=== PATIENT | female | born 1930 | race Caucasian/White ===

== ENCOUNTER 2020-06-06 16:59 | Inpatient (IN) | payer OTHER ==
[2020-06-06] MEDS ORDERED: HEPARIN NA (PORCINE) 5,000 UNITS/ML 1ML VIAL ONE (17:36)
[2020-06-06] MEDS ORDERED: PROPOFOL 20 ML ONE ×2 (17:57)
[2020-06-06] MEDS ORDERED: MIDAZOLAM HCL 2 MG/2 ML SINGLE DOSE VIAL ONE (17:57)
[2020-06-06] MEDS ORDERED: POVIDONE-IODINE OINTMENT 10% - 28.4 GM TUBE ONE (18:05)
--- NOTE | 2020-06-06 18:21 | PDOC ---
History of Present Illness - General Chief Complaint: Laceration Stated Complaint: BLEEDING Time Seen by Provider: 06/06/20 18:10 - History of Present Illness Initial Comments: 06/06/20 18:17 89 F with h/o HTN, gout, CKD, CAD, dementia, presenting to ED with ischemic R foot. Pt was sent in from Dr. Em's office. Pt is to have R fem-pop bypass today. Pt reports pain in her RLE. Osbaldo F/C. History limited 2/2 dementia. Past History - Medical History Allergies/Adverse Reactions: Allergies Allergy/AdvReac Type Severity Reaction Status Date / Time No Known Allergies Allergy Verified 06/06/20 18:05 COPD: No CHF: Yes GI Disorders: Yes (gerd) HTN: Yes Hypercholesterolemia: Yes Psychiatric Problems: Yes (depression) Other medical history: DVT,chronic kidney - Reproductive History Is Patient Now?: No - Psycho-Social/Smoking History Smoking History: Never smoked Have you smoked in the past 12 months: No Information on smoking cessation initiated: No - Substance Abuse Hx (Audit-C & DAST Scrn) How often the patient has a drink containing alcohol: Never Score: In Men: 4 or > Positive; In Women: 3 or > Positive: 0 Screen Result (Pos requires Nsg. Audit-10AR): Negative In the last yr the pt used illegal drug/Rx for NonMed reason: No Score: Yes response is considered Positive: 0 Screen Result (Positive result requires Nsg. DAST-10): Negative Review of Systems - Review of Systems Able to Perform ROS?: No *Physical Exam - Vital Signs Last Vital Signs Temp Pulse Resp BP Pulse Ox 97.5 F L 52 L 17 153/57 L 96 06/06/20 17:00 06/06/20 17:00 06/06/20 17:00 06/06/20 17:00 06/06/20 17:00 - Physical Exam 06/06/20 18:20 "GENERAL: Awake, alert, in no acute distress. HEAD: No signs of trauma EYES: PERRLA, EOMI, sclera anicteric, conjunctiva clear ENT: Auricles normal inspection, hearing grossly normal, nares patent, oropharynx clear without exudates. Moist mucosa NECK: Nontender, no stepoffs, Normal ROM, supple, no lymphadenopathy, JVD, or masses LUNGS: Breath sounds equal, clear to auscultation bilaterally. No wheezes, and no crackles HEART: Regular rate and rhythm, normal S1 and S2, no murmurs, rubs or gallops ABDOMEN: Soft, nontender, normoactive bowel sounds. No guarding, no rebound. No masses EXTREMITIES: + R foot diminished pulses NEUROLOGICAL: Cranial nerves II through XII intact. SKIN: Warm, Dry, normal turgor, no rashes or lesions noted. Medical Decision Making - Medical Decision Making 06/06/20 18:20 89 F with ischemic R foot, sent in for fem-pop bypass with Dr. Em. - Labs, T&S, coags - Dr. Em at bedside to take pt to OR Discharge - Discharge Information Problems reviewed: Yes Clinical Impression/Diagnosis: Ischemic foot - Admission Yes - Follow up/Referral - Patient Discharge Instructions - Post Discharge Activity
[2020-06-06 18:43] LABS: BASO % 0.7 % (0-2.0); EOS % 2.1 % (0-4.5); HEMATOCRIT 30.8 % (32.4-45.2); HEMOGLOBIN 9.8 GM/dL (10.7-15.3); LYMPH % 9.8 % (8-40); MCH 27.2 pg (25.7-33.7); MCHC 31.9 g/dl (32.0-36.0); MEAN CELL VOLUME 85.2 fl (80-96); MEAN PLT VOLUME 8.4 fl (7.5-11.1); MONO % 3.7 % (3.8-10.2); NEUT % 83.7 % (42.8-82.8); PLATELET COUNT 292 K/MM3 (134-434); RBC 3.61 M/mm3 (3.60-5.2); RDW 16.8 % (11.6-15.6); WHITE BLOOD COUNT 11.1 K/mm3 (4.0-10.0)
[2020-06-06] MEDS ORDERED: ROCURONIUM BROMIDE 50 MG/5 ML SYRINGE ONE (19:04)
[2020-06-06 19:12] LABS: ALBUMIN 2.8 g/dl (3.4-5.0); BILIRUBIN,TOTAL 0.3 mg/dL (0.2-1); BLOOD UREA NITROGEN 30.4 mg/dL (7-18); CALCIUM 8.5 mg/dL (8.5-10.1); CREATININE 1.6 mg/dL (0.55-1.3); POTASSIUM 4.3 mmol/L (3.5-5.1); TOT PROT 6.2 g/dl (6.4-8.2)
[2020-06-06] MEDS ORDERED: ceFAZolin SODIUM 1 GM VIAL IVPB ONE (19:20)
[2020-06-06] MEDS ORDERED: NEOSTIGMINE METHYLSULFATE 0.5 MG/ML - 10 ML MDV ONE (21:06)
[2020-06-06] MEDS ORDERED: GLYCOPYRROLATE 0.2 MG/1 ML VIAL ONE (21:06)
[2020-06-06] MEDS ORDERED: BACITRACIN 15 GM TUBE TOPICAL OINTMENT ONE (21:13)
[2020-06-06] MEDS ORDERED: POVIDONE-IODINE OINTMENT 10% - 28.4 GM TUBE TP ONE (21:23)
[2020-06-06] MEDS ORDERED: CHLORHEXIDINE GLUCONATE 4% CLEANSER FOR DECOLONIZATION TP SCH (22:00)
[2020-06-06] MEDS ORDERED: ACETAMINOPHEN 500 MG TABLET (FP) PO PRN ×2 (22:06→22:14)
[2020-06-06] MEDS ORDERED: SENNOSIDES/DOCUSATE COMBO (SENNA PLUS) TABLET (UD) PO PRN (22:06)
[2020-06-06] MEDS: LABETALOL HCL 5 MG/1 ML (100MG/20 ML VIAL) IVPUSH ONE ×2 (22:15→23:49)
--- NOTE | 2020-06-06 22:25 | OP ---
Operative Note - Note: Operative Date: 06/06/20 Pre-Operative Diagnosis: Right lower extremity ischemia Operation: s/p RIght lower extremity femoral popliteal bypass with PTFE graft Surgeon: Arlin Em Preassembler And Inspector: Salome Collado Anesthesia: General Estimated Blood Loss (mls): 150 Drains, Volume Out (mls): 200 (brady) Fluid Volume Replaced (mls): 1,000 Operative Report Dictated: Yes
--- NOTE | 2020-06-06 22:27 | SURG ---
Surgery Office Support Associate Note Office Support Associate: Salome Collado PA-C Date of Service: 06/06/20 Diagnosis: Right lower extremity ischemia Procedure: s/p RIght lower extremity femoral popliteal bypass with PTFE graft I was present for the entirety of the operative procedure. For further detail, please refer to operative report.
[2020-06-06] MEDS ORDERED: LABETALOL HCL 5 MG/1 ML (100MG/20 ML VIAL) IVPUSH PRN (22:37)
[2020-06-06] MEDS: MORPHINE SULFATE 2 MG/ML VIAL IVPUSH PRN (23:47)
[2020-06-06] MEDS: SODIUM CHLORIDE 1,000 ML IV SCH (23:49)
[2020-06-07] MEDS ORDERED: LABETALOL HCL 5 MG/1 ML (100MG/20 ML VIAL) IVPUSH PRN ×2 (00:36→17:47)
[2020-06-07] MEDS: MUPIROCIN 2% TOPICAL OINTMENT FOR DECOLONIZATION NS SCH ×2 (00:44→13:22)
--- NOTE | 2020-06-07 00:48 | CONSULT ---
Consultation: REQUESTING PROVIDER: CONSULT REQUEST: We have been asked to medically evaluate this patient for (specify). HISTORY OF PRESENT ILLNESS: 89 yo female DNI with pmh dementia, htn, CAD, DVTs, CKD, GERD, constipation, cardiac pacemaker (on coumadin), hld, PVD, Heart failure presents to ICU for post op day 0 for Right popliteal-femoral bypass. Pt poor historian due to baseline dementia most of history was presented by anesthesiologist and note. Pt had doppler study in vascular surgeon 's office showed ischemic right foot. Pt presented to hospital for urgent fem pop bypass. Pt received bypass and now just complaining of ongoing right leg pain. Pt has some mild chronic chest pain but denies sob, fevers, chills, numbness. Pt has not made bowel movement or past gas post surgery. Pt had very high bp post surgery and was given 25 labetalol will monitor PMH: Dementia, htn, CAD, DVTs, CKD, Gerd, Constipation, HLD, PVD, heart failure Meds: santyl 250 uints/ gram, calcium alginate, furosemide 40mg, coumadin 2gm (started 05/13 for DVT held today), acetaminophen 500 mg, polyethyelene glycol 17 g, senna 8.6 mg, Dakin's solution, isosorbide mononitrate ER 30 mg tablet, rosuvastatin 10mg, uloric 40 mg PSH: cataract surgery PCP: Dr. Hirsch [phone] Vascular: Dr. Em REVIEW OF SYSTEMS: Dementia unreliable PHYSICAL EXAMINATION Vital Signs - 24 hr 06/06/20 06/06/20 06/06/20 17:00 21:31 21:45 Temperature 97.5 F L 97.2 F L Pulse Rate 52 L 55 L 57 L Respiratory 17 17 18 Rate Blood Pressure 153/57 L 198/93 H O2 Sat by Pulse 100 93 L 100 Oximetry (%) 06/06/20 06/06/20 06/06/20 22:00 22:15 22:30 Temperature Pulse Rate 56 L 55 L 55 L Respiratory 18 16 16 Rate Blood Pressure 190/60 H 194/75 H 194/72 H O2 Sat by Pulse 97 97 97 Oximetry (%) 06/06/20 06/06/20 06/06/20 22:45 23:00 23:57 Temperature 97.5 F L 97.5 F L Pulse Rate 52 L 55 L 50 L Respiratory 14 14 14 Rate Blood Pressure 196/66 H 171/35 H 112/77 O2 Sat by Pulse 96 100 100 Oximetry (%) GENERAL: Awake, alert, and oriented to person. HEAD: Normal with no signs of trauma. EYES: Pupils equal, round and reactive to light, EARS, NOSE, THROAT: Ears normal, nares patent, oropharynx clear without exudates. NECK: Normal range of motion, supple without lymphadenopathy, JVD, or masses. LUNGS: Breath sounds equal, clear to auscultation bilaterally. HEART: Regular rate and rhythm, normal S1 and S2 without murmur, rub or gallop. ABDOMEN: Soft, nontender, not distended, normoactive bowel sounds, no guarding, no rebound, no masses. UPPER EXTREMITIES: 2+ pulses, warm, well-perfused. No cyanosis. No clubbing. Cap refill <2 seconds. No peripheral edema. LOWER EXTREMITIES: bilateral lower ext edema. 2+ pulses on left pedis dorsalis. Right leg kerlex showing no blood from surgery. Pt has good flow to dorsalis pedis artery via doppler NEUROLOGICAL: sensation equal on bilateral lower ext. PSYCHIATRIC: Cooperative. Good eye contact. Appropriate mood and affect. SKIN: Warm, dry, normal turgor, no rashes or lesions noted. Laboratory Results - last 24 hr 06/06/20 06/06/20 06/06/20 18:24 18:24 18:24 WBC 11.1 H RBC 3.61 Hgb 9.8 L Hct 30.8 L MCV 85.2 MCH 27.2 MCHC 31.9 L RDW 16.8 H Plt Count 292 MPV 8.4 Absolute Neuts (auto) 9.3 H Neutrophils % 83.7 H Lymphocytes % 9.8 Monocytes % 3.7 L Eosinophils % 2.1 Basophils % 0.7 Nucleated RBC % 0 Sodium 142 Potassium 4.3 Chloride 110 H Carbon Dioxide 23 Anion Gap 9 BUN 30.4 H Creatinine 1.6 H Est GFR (CKD-EPI)AfAm 32.77 Est GFR (CKD-EPI)NonAf 28.27 Random Glucose 147 H Calcium 8.5 Total Bilirubin 0.3 AST 93 H ALT 28 Alkaline Phosphatase 149 H Total Protein 6.2 L Albumin 2.8 L Blood Type B NEGATIVE Antibody Screen Negative Crossmatch See Detail 06/06/20 06/06/20 19:50 19:50 WBC RBC Hgb Hct MCV MCH MCHC RDW Plt Count MPV Absolute Neuts (auto) Neutrophils % Lymphocytes % Monocytes % Eosinophils % Basophils % Nucleated RBC % Sodium Potassium Chloride Carbon Dioxide Anion Gap BUN Creatinine Est GFR (CKD-EPI)AfAm Est GFR (CKD-EPI)NonAf Random Glucose Calcium Total Bilirubin AST ALT Alkaline Phosphatase Total Protein Albumin Blood Type Cancelled B NEGATIVE Antibody Screen Cancelled Crossmatch Active Medications Generic Name Dose Route Start Last Admin Trade Name Freq PRN Reason Stop Dose Admin Acetaminophen 1,000 mg 06/06/20 22:14 Tylenol - PO Q8H PRN PAIN LEVEL 1-5 Carvedilol 25 mg 06/07/20 10:00 Coreg - PO BID [facility] Chlorhexidine Gluconate 1 applic 06/06/20 22:00 Hibiclens For Decolonization - TP HS MALINA Febuxostat 40 mg 06/07/20 10:00 Uloric - PO DAILY MALINA Furosemide 40 mg 06/07/20 10:00 Lasix - PO DAILY [facility] Sodium Chloride 1,000 mls @ 83 mls/hr 06/06/20 21:45 06/06/20 23:49 Normal Saline - IV 83 mls/hr ASDIR MALINA Administration Cefazolin Sodium 1 gm/ 50 mls @ 100 mls/hr 06/07/20 03:00 Dextrose IVPB 06/08/20 02:59 Q8H-IV [facility] Isosorbide Mononitrate 30 mg 06/07/20 10:00 Imdur - PO DAILY [facility] Labetalol HCl 10 mg 06/07/20 00:36 Normodyne Injection - IVPUSH Q15M PRN HYPERTENSION Mirtazapine 7.5 mg 06/07/20 22:00 Remeron - PO HS [facility] Morphine Sulfate 2 mg 06/06/20 22:09 06/06/20 23:47 Morphine Sulfate IVPUSH 2 mg Q4H PRN Administration PAIN LEVEL 1-5 Mupirocin 1 applic 06/06/20 22:00 Bactroban Ointment (For Decolonization) - NS 06/11/20 21:59 BID [facility] Polyethylene Glycol 17 gm 06/07/20 10:00 Miralax (For Daily Use) - PO DAILY [facility] Rosuvastatin Calcium 10 mg 06/07/20 22:00 Crestor - PO HS MALINA Senna/Docusate Sodium 2 tablet 06/06/20 22:06 Pericolace - PO DAILY PRN CONSTIPATION ASSESSMENT/PLAN: Dispo: We will continue to follow the patient. Thank you for this consultative opportunity. Neuro - Dementia - Will cont to monitor neuro intact of feet. Cardiac - Pt BP was high in PACU was given 20 Labetalol - pressure now MAP 50 250cc bolus given still <65 will start vasopressin if need be -PMH htn- will hold bp meds for now - HLD- will give atorvastatin - Anticoagulation- restart warfarin starting tomorrow - CHF- restart home meds tomorrow Resp - continue incentive spirometry every 15 minutes while awake - CKD - Will monitor Is and Os - will monitor electrolytes Ext - Pt received femoral popliteal bypass of right leg - will cont monitor neurovasculature intact ID - pt on post op abx cefazolin FEN - will monitor electrolytes Prophylaxis - DVT- will restart warfarin tomorrow under surgery consult Visit type - Medication Review Med list reviewed for High Risk Meds patients 65 and older: Yes - Emergency Visit Emergency Visit: Yes ED Registration Date: 06/06/20 Care time: The patient presented to the Emergency Department on the above date and was hospitalized for further evaluation of their emergent condition. - New Patient This patient is new to me today: Yes Date on this admission: 06/06/20 - Critical Care Critical Care patient: Yes Total Critical Care Time (in minutes): 36 Critical Care Statement: The care of this patient involved high complexity decision making to prevent further life threatening deterioration of the patient's condition and/or to evaluate & treat vital organ system(s) failure or risk of failure. ATTENDING PHYSICIAN STATEMENT I saw and evaluated the patient. I reviewed the resident's note and discussed the case with the resident. I agree with the resident's findings and plan as documented. SUBJECTIVE: OBJECTIVE: ASSESSMENT AND PLAN:
[2020-06-07] MEDS ORDERED: DEXTROSE 5%-WATER - 50 ML IVPB ONE ×3 (01:45→16:31)
[2020-06-07] MEDS ORDERED: ceFAZolin SODIUM 1 GM VIAL ONE ×3 (01:45→16:31)
[2020-06-07] MEDS: CEFAZOLIN 1 GM in DEXTROSE 5%-WATER - 50 ML IVPB SCH ×4 (02:02→21:12)
[2020-06-07] MEDS ORDERED: VASOPRESSIN 40 UNITS in SODIUM CHLORIDE 98 ML IVPB SCH (04:45)
[2020-06-07 07:05] LABS: BASO % 0.7 % (0-2.0); EOS % 0.5 % (0-4.5); HEMATOCRIT 25.6 % (32.4-45.2); HEMOGLOBIN 8.3 GM/dL (10.7-15.3); LYMPH % 4.7 % (8-40); MCH 27.9 pg (25.7-33.7); MCHC 32.5 g/dl (32.0-36.0); MEAN CELL VOLUME 85.7 fl (80-96); MEAN PLT VOLUME 8.8 fl (7.5-11.1); MONO % 5.9 % (3.8-10.2); NEUT % 88.2 % (42.8-82.8); PLATELET COUNT 167 K/MM3 (134-434); RBC 2.98 M/mm3 (3.60-5.2); RDW 17.3 % (11.6-15.6); WHITE BLOOD COUNT 8.9 K/mm3 (4.0-10.0)
[2020-06-07 07:18] LABS: INR 2.8 (0.83-1.09); PROTHROMBIN TIME (PATIENT) 33.4 SEC (9.7-13.0)
[2020-06-07 07:21] LABS: ACTIVATED PTT 24.2 SECONDS (25.2-36.5)
[2020-06-07 07:43] LABS: ALBUMIN 2.3 g/dl (3.4-5.0); BILIRUBIN,TOTAL 0.2 mg/dL (0.2-1); BLOOD UREA NITROGEN 31.1 mg/dL (7-18); CALCIUM 8.2 mg/dL (8.5-10.1); CREATININE 1.6 mg/dL (0.55-1.3); MAGNESIUM 1.7 mg/dL (1.8-2.4); PHOSPHOROUS 4.4 mg/dL (2.5-4.9); POTASSIUM 4.4 mmol/L (3.5-5.1); TOT PROT 5.1 g/dl (6.4-8.2)
[2020-06-07] MEDS: SODIUM CHLORIDE 1,000 ML IV SCH (09:31)
[2020-06-07] MEDS ORDERED: FEBUXOSTAT 40 MG TAB PO SCH (10:00)
[2020-06-07] MEDS ORDERED: CARVEDILOL 25 MG TABLET (FP) PO SCH (10:00)
[2020-06-07] MEDS ORDERED: ISOSORBIDE MONONITRATE 30 MG TAB.SR.24H (FP) PO SCH (10:00)
[2020-06-07] MEDS ORDERED: FUROSEMIDE 40 MG TABLET (FP) PO SCH (10:00)
[2020-06-07] MEDS ORDERED: POLYETHYLENE GLYCOL 3350 119 GM BTL PO SCH (10:00)
--- NOTE | 2020-06-07 10:13 | PN ---
Teaching Attending Note Name of Resident: Genesis Zhang ATTENDING PHYSICIAN STATEMENT I saw and evaluated the patient. I reviewed the resident's note and discussed the case with the resident. I agree with the resident's findings and plan as documented. SUBJECTIVE: Patient seen and examined in the ICU. 89 F, dementia, HTN, CAD, DVTs, CKD, GERD, constipation, cardiac pacemaker (on coumadin), HPL, PVD, and CHF. Admitted to ICU S/P Right popliteal-femoral bypass. Initially reported to have hypertension and then developed transient hypotension that responded to IVF and did not require pressors. Patient is awake and alert but mildly confused. Denies CP or SOB. Intake & Output 06/04/20 06/05/20 06/06/20 06/07/20 23:59 23:59 23:59 23:59 Intake Total 1150 997 Output Total 650 250 Balance 500 747 Weight 174 lb 174 lb 9.6 oz Last Vital Signs Temp Pulse Resp BP Pulse Ox 97.9 F 64 18 110/50 L 100 06/07/20 06:00 06/07/20 08:00 06/07/20 08:00 06/07/20 08:00 06/07/20 09:00 Active Medications Acetaminophen (Tylenol -) 1,000 mg PO Q8H PRN PRN Reason: PAIN LEVEL 1-5 Carvedilol (Coreg -) 25 mg PO BID [facility] Chlorhexidine Gluconate (Hibiclens For Decolonization -) 1 applic TP HS MALINA Last Admin: 06/07/20 00:44 Dose: Not Given Documented by: Febuxostat (Uloric -) 40 mg PO DAILY [facility] Furosemide (Lasix -) 40 mg PO DAILY [facility] Sodium Chloride (Normal Saline -) 1,000 mls @ 83 mls/hr IV ASDIR MALINA Last Admin: 06/07/20 09:31 Dose: 83 mls/hr Documented by: Cefazolin Sodium 1 gm/ (Dextrose) 50 mls @ 100 mls/hr IVPB Q8H-IV [facility] Stop: 06/08/20 02:59 Last Admin: 06/07/20 09:31 Dose: 100 mls/hr Documented by: Vasopressin 40 units/ Sodium (Chloride) 100 mls @ 5 mls/hr IVPB ASDIR MALINA; Protocol Last Admin: 06/07/20 06:52 Dose: Not Given Documented by: Isosorbide Mononitrate (Imdur -) 30 mg PO DAILY [facility] Labetalol HCl (Normodyne Injection -) 10 mg IVPUSH Q15M PRN PRN Reason: HYPERTENSION Mirtazapine (Remeron -) 7.5 mg PO HS [facility] Morphine Sulfate (Morphine Sulfate) 2 mg IVPUSH Q4H PRN PRN Reason: PAIN LEVEL 1-5 Last Admin: 06/06/20 23:47 Dose: 2 mg Documented by: Mupirocin (Bactroban Ointment (For Decolonization) -) 1 applic NS BID [facility] Stop: 06/11/20 21:59 Last Admin: 06/07/20 00:44 Dose: Not Given Documented by: Polyethylene Glycol (Miralax (For Daily Use) -) 17 gm PO DAILY [facility] Rosuvastatin Calcium (Crestor -) 10 mg PO HS [facility] Senna/Docusate Sodium (Pericolace -) 2 tablet PO DAILY PRN PRN Reason: CONSTIPATION GENERAL: Awake and responsive, NAD HEAD: Normal with no signs of trauma. EYES: (-) Pallor EARS, NOSE, THROAT: Ears normal, nares patent, oropharynx clear without exudates. NECK: Normal range of motion, supple without lymphadenopathy, JVD, or masses. LUNGS: Breath sounds equal, clear to auscultation bilaterally. HEART: Regular rate and rhythm, normal S1 and S2 without murmur, rub or gallop. ABDOMEN: Soft, nontender, not distended, normoactive bowel sounds, no guarding, no rebound, no masses. UPPER EXTREMITIES: 2+ pulses, warm, well-perfused. No cyanosis. No clubbing. Cap refill <2 seconds. No peripheral edema. LOWER EXTREMITIES: bilateral lower ext edema. 2+ pulses on left pedis dorsalis. Right leg kerlex showing no blood from surgery. Pt has good flow to dorsalis pedis artery via doppler NEUROLOGICAL: Non-focal PSYCHIATRIC: Cooperative. SKIN: Warm, dry, normal turgor, no rashes or lesions noted. Laboratory Results - last 24 hr 06/06/20 06/06/20 06/06/20 18:24 18:24 18:24 WBC 11.1 H RBC 3.61 Hgb 9.8 L Hct 30.8 L MCV 85.2 MCH 27.2 MCHC 31.9 L RDW 16.8 H Plt Count 292 MPV 8.4 Absolute Neuts (auto) 9.3 H Neutrophils % 83.7 H Lymphocytes % 9.8 Monocytes % 3.7 L Eosinophils % 2.1 Basophils % 0.7 Nucleated RBC % 0 Sodium 142 Potassium 4.3 Chloride 110 H Carbon Dioxide 23 Anion Gap 9 BUN 30.4 H Creatinine 1.6 H Est GFR (CKD-EPI)AfAm 32.77 Est GFR (CKD-EPI)NonAf 28.27 Random Glucose 147 H Calcium 8.5 Total Bilirubin 0.3 AST 93 H ALT 28 Alkaline Phosphatase 149 H Total Protein 6.2 L Albumin 2.8 L Blood Type B NEGATIVE Antibody Screen Negative Crossmatch See Detail 06/06/20 06/06/20 19:50 19:50 WBC RBC Hgb Hct MCV MCH MCHC RDW Plt Count MPV Absolute Neuts (auto) Neutrophils % Lymphocytes % Monocytes % Eosinophils % Basophils % Nucleated RBC % Sodium Potassium Chloride Carbon Dioxide Anion Gap BUN Creatinine Est GFR (CKD-EPI)AfAm Est GFR (CKD-EPI)NonAf Random Glucose Calcium Total Bilirubin AST ALT Alkaline Phosphatase Total Protein Albumin Blood Type Cancelled B NEGATIVE Antibody Screen Cancelled Crossmatch ASSESSMENT/PLAN: POD #1 : Right Fem-Pop bypass Dementia HTN CAD DVT on Coumadin CKD GERD Constipation Cardiac pacemaker HPL PVD CHF Continue IVF Continue to hold home anti-HTN agents Strict I & O Continue Coumadin Follow INR PO as tolerated Pain control Incentive Spirometry Cardiac Telemetry monitoring Dr Morse
--- NOTE | 2020-06-07 11:16 | PN ---
Progress Note (short form) - Note Progress Note: Anesthesiologist post op note POD#1. S/P Right popliteal-femoral bypass under general anesthesia. VSS. Awake alert. VSS. No apparent post anesthesia complications.
[2020-06-07] MEDS ORDERED: PT OWN MED DRAWER 7, Y5N ONE (12:20)
[2020-06-07] MEDS: MORPHINE SULFATE 2 MG/ML VIAL IVPUSH PRN ×3 (12:56→22:22)
--- NOTE | 2020-06-07 13:46 | HOSP ---
Subjective - Review of Symptoms General: No: Chills, Night Sweats, Fatigue, Malaise, Appetite, Other HEENT: No: Head Aches, Visual Changes, Eye Pain, Ear Pain, Dysphasia, Sinus Congestion, Post Nasal Drip, Sore Throat, Other Pulmonary: No: Dyspnea, Cough, Pleuritic Chest Pain, Other Cardiovascular: No: Chest Pain, Palpitations, Orthopnea, Paroxysmal Noc. Dyspnea, Edema, Light Headedness, Other Gastrointestinal: No: Nausea, NOSYM, Vomiting, Abdominal Pain, Diarrhea, Constipation, Melena, Hematochezia, Other Musculoskeletal: No: No Symptoms, Back Pain, Crepitus, Decreased ROM, Extremity Pain, Joint Pain, Joint Swelling, Muscle Pain, Muscle Cramps, Muscle Weakness, Other Neurological: No: Weakness, Numbness, Incoordination, Change in speech, Confusion, Seizures, Other Physical Examination Vital Signs: Vital Signs Temperature 98 F 06/07/20 10:00 Pulse Rate 62 06/07/20 12:00 Respiratory Rate 16 06/07/20 12:00 Blood Pressure 145/36 L 06/07/20 12:00 O2 Sat by Pulse Oximetry (%) 100 06/07/20 09:00 Constitutional: Yes: Anxious, Mild Distress, Obese Eyes: Yes: Conjunctiva Clear, EOM Intact HENT: Yes: Atraumatic, Normocephalic Neck: Yes: Supple Cardiovascular: Yes: Pulse Irregular Respiratory: Yes: CTA Bilaterally Gastrointestinal: Yes: Normal Bowel Sounds, Soft, Abdomen, Obese Edema: No Neurological: Yes: Tremors (mouth tremors) Psychiatric: Yes: Agitated, Other (confused, keeps asking same questions) Labs: CBC, BMP 06/07/20 06:18 06/07/20 06:18 Hospitalist Encounter Assessment: 89 yo female with a PMHx of dementia, HTN, CAD, DVTs, CKD, GERD, constipation, cardiac pacemaker (on coumadin), HLD, PVD, & Heart failure. Pt had doppler study in vascular surgeon 's office showed ischemic right foot. Pt pres ented to hospital for urgent fem pop bypass. Pt had very high bp post surgery and was given labetalol. Patient's BP and HR got very low and there was concern patient would need pressors so patient was admitted to the ICU. Patient was given IVF bolus and MAP was maintained > 60 without the need for pressors. Patient was observed overnight without issues. This morning patient was very agitated and confused looking for her belongings. After being told multiple times that her LTC facility has her stuff, patient still asks for them. She was very upset. Otherwise, patient is stable for downgrade to [facility] for further monitoring. Visit type - Medication Review Med list reviewed for High Risk Meds patients 65 and older: Yes - Emergency Visit Emergency Visit: Yes ED Registration Date: 06/06/20 Care time: The patient presented to the Emergency Department on the above date and was hospitalized for further evaluation of their emergent condition. - New Patient This patient is new to me today: Yes Date on this admission: 06/12/20 - Critical Care Critical Care patient: Yes Total Critical Care Time (in minutes): 35 Critical Care Statement: The care of this patient involved high complexity decision making to prevent further life threatening deterioration of the patient's condition and/or to evaluate & treat vital organ system(s) failure or risk of failure.
[2020-06-07] MEDS ORDERED: ACETAMINOPHEN 325 MG TABLET (FP) PO PRN (14:02)
--- NOTE | 2020-06-07 15:31 | HOSP ---
Subjective - Review of Symptoms Subjective: ACCEPTANCE NOTE 89 yo f /w PMH dementia, HTN, CAD, DVTs, CKD, GERD, constipation, cardiac pacemaker (on coumadin), HLD, PVD, & Heart failure. POD 1 right fem pop bypass w/ Dr. Em. Pt hypertensive after procedure controlled with labetolol. Now BP stabel and stable for transfer to [facility]. Patient uncooperative and combative during assessment, refuses interview or physical exam. VSS. Physical Examination Vital Signs: Vital Signs Temperature 98 F 06/07/20 10:00 Pulse Rate 62 06/07/20 12:00 Respiratory Rate 16 06/07/20 12:00 Blood Pressure 145/36 L 06/07/20 12:00 O2 Sat by Pulse Oximetry (%) 100 06/07/20 09:00 Findings/Remarks: Patient refused physical exam Labs: CBC, BMP 06/07/20 06:18 06/07/20 06:18 Hospitalist Encounter Assessment: -monitor BP and peripheral pulses post op -continue current management per vascular surgery.
[2020-06-07] MEDS ORDERED: SODIUM CHLORIDE 1,000 ML IV SCH (17:47)
[2020-06-07] MEDS ORDERED: SENNOSIDES/DOCUSATE COMBO (SENNA PLUS) TABLET (UD) PO PRN (17:47)
[2020-06-07] MEDS ORDERED: ROSUVASTATIN CA 10 MG TABLET (FP) PO SCH (22:00)
[2020-06-07] MEDS ORDERED: MIRTAZAPINE 15 MG TABLET (FP) PO SCH (22:00)
[2020-06-07] MEDS ORDERED: MUPIROCIN 2% TOPICAL OINTMENT FOR DECOLONIZATION NS SCH (22:00)
[2020-06-07] MEDS ORDERED: CHLORHEXIDINE GLUCONATE 4% CLEANSER FOR DECOLONIZATION TP SCH (22:00)
[2020-06-07] MEDS: MIRTAZAPINE 15 MG TABLET (FP) PO SCH (22:23)
[2020-06-07] MEDS: ROSUVASTATIN CA 10 MG TABLET (FP) PO SCH (22:23)
[2020-06-08] MEDS ORDERED: ceFAZolin SODIUM 1 GM VIAL ONE (00:32)
[2020-06-08] MEDS ORDERED: DEXTROSE 5%-WATER - 50 ML IVPB ONE (00:32)
[2020-06-08] MEDS: CEFAZOLIN 1 GM in DEXTROSE 5%-WATER - 50 ML IVPB SCH (01:23)
[2020-06-08] MEDS: MORPHINE SULFATE 2 MG/ML VIAL IVPUSH PRN ×3 (05:32→22:01)
[2020-06-08 07:08] LABS: INR 3.43 (0.83-1.09)
[2020-06-08 07:11] LABS: ACTIVATED PTT 34.5 SECONDS (25.2-36.5)
--- NOTE | 2020-06-08 08:36 | PN ---
Progress Note (short form) - Note Progress Note: S: Patient has pain throughout without elaboration. Does not want to speak more Vital Signs Temperature 99.2 F 06/08/20 10:40 Pulse Rate 66 06/08/20 12:00 Respiratory Rate 18 06/08/20 12:00 Blood Pressure 99/46 L 06/08/20 12:00 O2 Sat by Pulse Oximetry (%) 100 06/08/20 07:00 PE: Gen: NAD, awake, alert HEENT: NC/AT, EOMI, CELESTE, no conjunctival pallor, MMM LUNG: CTA b/l without overt wheezing/rales CARD: RRR no murmurs appreciated ABD: Soft, NT/ND, + BS EXT: R bandage in place without any drainage near surgical wounds, warm b/l LExt with 1+ DP pulses b/l CBC, BMP 06/08/20 06:12 06/08/20 06:12 Active Medications Acetaminophen (Tylenol -) 1,000 mg PO Q8H PRN PRN Reason: PAIN LEVEL 1-5 Last Admin: 06/08/20 10:04 Dose: 1,000 mg Documented by: Carvedilol (Coreg -) 25 mg PO BID [facility] Febuxostat (Uloric -) 40 mg PO DAILY [facility] Last Admin: 06/08/20 10:05 Dose: 40 mg Documented by: Furosemide (Lasix -) 40 mg PO DAILY [facility] Sodium Chloride (Normal Saline -) 1,000 mls @ 100 mls/hr IV ASDIR [facility] Isosorbide Mononitrate (Imdur -) 30 mg PO DAILY [facility] Mirtazapine (Remeron -) 7.5 mg PO [facility] Last Admin: 06/07/20 22:23 Dose: 7.5 mg Documented by: Morphine Sulfate (Morphine Sulfate) 2 mg IVPUSH Q4H PRN PRN Reason: PAIN LEVEL 1-5 Last Admin: 06/08/20 11:54 Dose: 2 mg Documented by: Polyethylene Glycol (Miralax (For Daily Use) -) 17 gm PO DAILY [facility] Last Admin: 06/08/20 10:05 Dose: Not Given Documented by: Rosuvastatin Calcium (Crestor -) 10 mg PO HS [facility] Last Admin: 06/07/20 22:23 Dose: 10 mg Documented by: Senna/Docusate Sodium (Pericolace -) 2 tablet PO DAILY PRN PRN Reason: CONSTIPATION Assessment and Plan: POD 2 R femoral-popliteal bypass Acute blood loss anemia Supratherapeutic INR Lower extremity DVT on AC Kidney injury, unknown if chronic Dementia History of CAD CHF with AICD History of HTN History of GERD --Patient limb improvement after threatened limb --Palpable DP pulses b/l --Vascular on board --Acute decline in Hgb likely residual after procedure --Transfuse 1U PRBC due to existing cardiovascular risk and perform CBC 1hr after infusion --Monitor for bleeds considering supratherapeutic INR --Holding Coumadin 2mg today; no need for any vitamin K or FFP --Monitor for bleeds --GENA vs. Acute on CKD --urine studies and UA --Renal U/S --Nephrology for ongoing care --Gentle IVF hydration --Hold Lasix home dose --Continue rest of home medications with exceptions to Imdur due to relative hypotension ongoing Dispo: telemetry Fernando Christian, DO - IM
[2020-06-08 08:50] LABS: HEMATOCRIT 21.6 % (32.4-45.2); MCH 28.2 pg (25.7-33.7); MCHC 32.5 g/dl (32.0-36.0); MEAN CELL VOLUME 86.8 fl (80-96); MEAN PLT VOLUME 8.7 fl (7.5-11.1); PLATELET COUNT 198 K/MM3 (134-434); RBC 2.49 M/mm3 (3.60-5.2); RDW 17.9 % (11.6-15.6); WHITE BLOOD COUNT 8.7 K/mm3 (4.0-10.0)
--- NOTE | 2020-06-08 09:07 | OP ---
DATE OF OPERATION: 06/06/2020 PREOPERATIVE DIAGNOSIS: Acute ischemia to the right lower extremity, ischemic ulcer with acute ischemia to the right lower extremity status post angiogram of the right leg, attempted angioplasty. POSTOPERATIVE DIAGNOSIS: Acute ischemia to the right lower extremity, ischemic ulcer with acute ischemia to the right lower extremity status post angiogram of the right leg, attempted angioplasty. OPERATIVE PROCEDURE: Right cqhugiq-hr-qmkyv-the-knee popliteal bypass with Barataria-James graft and a completion angiogram and endarterectomy of the common femoral artery. SURGEON: Arlin Em MD OUTPATIENT PHARMACY MANAGER: JAYNE Rinaldi ANESTHESIA: General. INDICATIONS: Patient is an 88-year-old who was seen in the office earlier for bilateral leg swelling and nonhealing ulcer of the right lower extremity which started about 3 or 4 weeks back, and the patient at that time was found to have vascular disease. The patient had a history of angioplasty and stent placement in the past. Preoperatively there were areas of stenosis in the popliteal artery and also in the stent, so the patient was brought to the operating room for balloon angioplasty. Initially [id number] and antegrade and the popliteal artery access were done in the office which was unsuccessful. During the course of the surgery there was some extravasation of the catheter, the dye, trying to get into the natural artery after the stent with heavy calcification, and at this stage the patient had evidence of ischemia. PROCEDURE IN DETAIL: So, the patient was transferred to the operating room here at [facility] for femoropopliteal bypass. General anesthesia ensued and a groin incision and [id number] popliteal artery was exposed with adequate exposure. Another incision was made above the knee and the tunnel was created between the 2 heads of the gastrocnemius muscle in the subsartorial space and it was brought to the groin. A 6-mm vein graft was brought through this tunnel and between the 2 heads of the gastrocnemius muscle and distally anastomosis was done to the popliteal artery which was found to be very soft. Again, at the common femoral artery it was severely calcified with inability to open the artery at any place. So, using the 11-blade and the rongeur the artery was chiseled open and all the calcific plaque was excised with the rongeur. Endarterectomy of the common femoral artery was done until there was an active forward flow from the iliac artery, and using 6-0 Prolene the anastomosis was accomplished to the graft and completion angiogram revealed excellent flow. After adequate hemostasis, subcutaneous tissue and skin were closed and patient went to the recovery room in stable condition. ARLIN EM M.D. [id number]
[2020-06-08 09:34] LABS: BLOOD UREA NITROGEN 34.2 mg/dL (7-18); CREATININE 1.9 mg/dL (0.55-1.3); MAGNESIUM 1.7 mg/dL (1.8-2.4); POTASSIUM 4.1 mmol/L (3.5-5.1)
[2020-06-08] MEDS: ACETAMINOPHEN 500 MG TABLET (FP) PO PRN (10:04)
[2020-06-08] MEDS: POLYETHYLENE GLYCOL 3350 119 GM BTL PO SCH ×2 (10:05→16:27)
[2020-06-08] MEDS: FEBUXOSTAT 40 MG TAB PO SCH (10:05)
[2020-06-08] MEDS ORDERED: MAGNESIUM SULF 50% (8.12 MEQ/2 ML-1 GM VIAL) IVPB ONE (10:40)
[2020-06-08] MEDS ORDERED: MAGNESIUM SULFATE IN WATER 2 GM/50 ML IVPB IVPB ONE (10:45)
--- NOTE | 2020-06-08 12:32 | PN ---
Progress Note (short form) - Note Progress Note: Resting in NAD on NC O2. Asking for Tylenol. Denies CP or SOB. No acute events overnight. Intake & Output 06/05/20 06/06/20 06/07/20 06/08/20 23:59 23:59 23:59 23:59 Intake Total 1150 1697 1546 Output Total 650 250 300 Balance 500 1447 1246 Weight 174 lb 174 lb 9.6 oz Last Vital Signs Temp Pulse Resp BP Pulse Ox 99.2 F 66 18 99/46 L 100 06/08/20 10:40 06/08/20 12:00 06/08/20 12:00 06/08/20 12:00 06/08/20 07:00 Active Medications Acetaminophen (Tylenol -) 1,000 mg PO Q8H PRN PRN Reason: PAIN LEVEL 1-5 Last Admin: 06/08/20 10:04 Dose: 1,000 mg Documented by: Carvedilol (Coreg -) 25 mg PO BID [facility] Febuxostat (Uloric -) 40 mg PO DAILY [facility] Last Admin: 06/08/20 10:05 Dose: 40 mg Documented by: Furosemide (Lasix -) 40 mg PO DAILY [facility] Sodium Chloride (Normal Saline -) 1,000 mls @ 83 mls/hr IV ASDIR [facility] Last Admin: 06/07/20 21:12 Dose: Not Given Documented by: Isosorbide Mononitrate (Imdur -) 30 mg PO DAILY [facility] Mirtazapine (Remeron -) 7.5 mg PO [facility] Last Admin: 06/07/20 22:23 Dose: 7.5 mg Documented by: Morphine Sulfate (Morphine Sulfate) 2 mg IVPUSH Q4H PRN PRN Reason: PAIN LEVEL 1-5 Last Admin: 06/08/20 11:54 Dose: 2 mg Documented by: Polyethylene Glycol (Miralax (For Daily Use) -) 17 gm PO DAILY [facility] Last Admin: 06/08/20 10:05 Dose: Not Given Documented by: Rosuvastatin Calcium (Crestor -) 10 mg PO HS [facility] Last Admin: 06/07/20 22:23 Dose: 10 mg Documented by: Senna/Docusate Sodium (Pericolace -) 2 tablet PO DAILY PRN PRN Reason: CONSTIPATION GENERAL: Awake and alert, NAD HEAD: Normal with no signs of trauma. EYES: (-) Pallor EARS, NOSE, THROAT: Ears normal, nares patent, oropharynx clear without exudates. NECK: Normal range of motion, supple without lymphadenopathy, JVD, or masses. LUNGS: Breath sounds equal, clear to auscultation bilaterally. HEART: Regular rate and rhythm, normal S1 and S2 without murmur, rub or gallop. ABDOMEN: Soft, nontender, not distended, normoactive bowel sounds, no guarding, no rebound, no masses. UPPER EXTREMITIES: 2+ pulses, warm, well-perfused. No cyanosis. No clubbing. Cap refill <2 seconds. No peripheral edema. LOWER EXTREMITIES: bilateral lower ext edema. 2+ pulses on left pedis dorsalis. Right leg kerlex showing no blood from surgery. Pt has good flow to dorsalis pedis artery via doppler NEUROLOGICAL: Non-focal PSYCHIATRIC: Cooperative. SKIN: Warm, dry, normal turgor, no rashes or lesions noted. Laboratory Results - last 24 hr 06/06/20 06/06/20 06/08/20 18:24 23:45 06:12 WBC RBC Hgb Hct MCV MCH MCHC RDW Plt Count MPV PT with INR 41.00 H INR 3.43 H PTT (Actin FS) 34.5 Sodium Potassium Chloride Carbon Dioxide Anion Gap BUN Creatinine Est GFR (CKD-EPI)AfAm Est GFR (CKD-EPI)NonAf POC Glucometer Random Glucose Calcium Magnesium COVID-19 (ASHLEY) Not detected Blood Type B NEGATIVE Antibody Screen Negative Crossmatch See Detail 06/08/20 06/08/20 06/08/20 06:12 06:12 06:26 WBC 8.7 RBC 2.49 L Hgb 7.0 L Hct 21.6 L D MCV 86.8 MCH 28.2 MCHC 32.5 RDW 17.9 H Plt Count 198 MPV 8.7 PT with INR INR PTT (Actin FS) Sodium 139 Potassium 4.1 Chloride 108 H Carbon Dioxide 24 Anion Gap 7 L BUN 34.2 H Creatinine 1.9 H Est GFR (CKD-EPI)AfAm 26.62 Est GFR (CKD-EPI)NonAf 22.97 POC Glucometer 72 Random Glucose 84 Calcium 8.0 L Magnesium 1.7 L COVID-19 (ASHLEY) Blood Type Antibody Screen Crossmatch ASSESSMENT/PLAN: POD #2 : Right Fem-Pop bypass Dementia HTN CAD DVT on Coumadin CKD GERD Constipation Cardiac pacemaker HPL PVD CHF Continue to hold home anti-HTN agents Strict I & O Continue Coumadin Follow INR PO as tolerated Pain control Incentive Spirometry Cardiac Telemetry monitoring Dr Morse
[2020-06-08] MEDS ORDERED: SODIUM CHLORIDE 1,000 ML IV SCH (12:56)
--- NOTE | 2020-06-08 15:13 | CONSULT ---
Consult Consult Specialty:: Nephrology Reason for Consultation:: GENA - History of Present Illness Chief Complaint: s/p right fem-pop bypass History of Present Illness: Pt is an 89 year old female with pmhx of dementia, htn, cad, dvt, ckd, gerd, ppm, pvd, and chf who is admitted to the ICU after fem pop bypass. She was ent in after being found to have an ischemic right foot. She was found to have elevated product merchandiser and I was called to evaluate her. She does have history of ckd. She says that she has two kidneys however one of them does not work well. She does not know what her last creatinine was. She denies dysuria or hematuria. She denies chest pain or palpitations. - History Source History Provided By: Patient, Medical Record - Past Medical History Cardio/Vascular: Yes: HTN, Hyperlipdemia Renal/: Yes: Renal Inusuff ...: No - Past Surgical History Past Surgical History: Yes: Permanent Pacemaker - Smoking History Smoking history: Never smoked Have you smoked in the past 12 months: No Home Medications - Allergies Allergies/Adverse Reactions: Allergies Allergy/AdvReac Type Severity Reaction Status Date / Time No Known Allergies Allergy Verified 06/06/20 18:05 - Home Medications Home Medications: Ambulatory Orders Acetaminophen [Tylenol .Extra-Strength -] 500 mg PO Q8H PRN 06/06/20 Carvedilol 25 mg PO BID 06/06/20 Febuxostat [Uloric] 40 mg PO DAILY 06/06/20 Furosemide [Lasix -] 40 mg PO DAILY 06/06/20 Isosorbide Mononitrate [Isosorbide Mononitrate ER] 30 mg PO DAILY 06/06/20 Mirtazapine 7.5 mg PO HS 06/06/20 Polyethylene Glycol 3350 17 gm PO DAILY 06/06/20 Rosuvastatin [Crestor -] 10 mg PO HS 06/06/20 Sennosides/Docusate Sodium [Senna Plus 8.6-50 mg Tablet] 8.6 mg PO DAILY PRN 06/06/20 Warfarin Na [Coumadin -] 2 mg PO HS 06/06/20 Family Medical History Family History: Denies Review of Systems - Review of Systems Constitutional: reports: No Symptoms Eyes: reports: No Symptoms HENT: reports: No Symptoms Neck: reports: No Symptoms Cardiovascular: reports: No Symptoms Genitourinary: reports: No Symptoms Musculoskeletal: reports: Other (right foot pain) Neurological: reports: No Symptoms Endocrine: reports: No Symptoms Hematology/Lymphatic: reports: No Symptoms Psychiatric: reports: No Symptoms Physical Exam Vital Signs: Vital Signs Temperature 99.2 F 06/08/20 10:40 Pulse Rate 66 06/08/20 12:00 Respiratory Rate 18 06/08/20 12:00 Blood Pressure 99/46 L 06/08/20 12:00 O2 Sat by Pulse Oximetry (%) 100 06/08/20 07:00 Constitutional: Yes: Calm Eyes: Yes: Conjunctiva Clear HENT: Yes: Atraumatic Neck: Yes: Supple Cardiovascular: Yes: S1, S2 Respiratory: Yes: CTA Bilaterally Gastrointestinal: Yes: Soft Renal/: Yes: Szymanski Present Edema: No Neurological: Yes: Oriented Psychiatric: Yes: Oriented Labs: CBC, BMP 06/08/20 06:12 06/08/20 06:12 Laboratory Tests 06/06/20 06/06/20 06/07/20 18:24 23:45 06:18 Creatinine 1.6 H 1.6 H COVID-19 (ASHLEY) Not detected 06/08/20 06:12 Creatinine 1.9 H COVID-19 (ASHLEY) Problem List - Problems (1) CKD (chronic kidney disease) Code(s): N18.9 - CHRONIC KIDNEY DISEASE, UNSPECIFIED (2) CAD (coronary artery disease) Code(s): I25.10 - ATHSCL HEART DISEASE OF [place] CORONARY ARTERY W/O ANG PCTRS (3) Peripheral artery disease Code(s): I73.9 - PERIPHERAL VASCULAR DISEASE, UNSPECIFIED (4) CHF (congestive heart failure) Code(s): I50.9 - HEART FAILURE, UNSPECIFIED (5) Ischemic foot Code(s): I99.8 - OTHER DISORDER OF CIRCULATORY SYSTEM Assessment/Plan Current Medications Generic Name Dose Route Start Last Admin Trade Name Freq PRN Reason Stop Dose Admin Acetaminophen 1,000 mg 06/07/20 17:47 06/08/20 10:04 Tylenol - PO 1,000 mg Q8H PRN Administration PAIN LEVEL 1-5 Carvedilol 25 mg 06/07/20 22:00 Coreg - PO BID [facility] Febuxostat 40 mg 06/08/20 10:00 06/08/20 10:05 Uloric - PO 40 mg DAILY [facility] Administration Furosemide 40 mg 06/08/20 10:00 Lasix - PO DAILY [facility] Sodium Chloride 1,000 mls @ 100 mls/hr 06/08/20 12:56 Normal Saline - IV ASDIR [facility] Isosorbide Mononitrate 30 mg 06/08/20 10:00 Imdur - PO DAILY [facility] Mirtazapine 7.5 mg 06/07/20 22:00 06/07/20 22:23 Remeron - PO 7.5 mg HS [facility] Administration Morphine Sulfate 2 mg 06/07/20 17:47 06/08/20 11:54 Morphine Sulfate IVPUSH 2 mg Q4H PRN Administration PAIN LEVEL 1-5 Polyethylene Glycol 17 gm 06/08/20 10:00 06/08/20 10:05 Miralax (For Daily Use) - PO Not Given DAILY [facility] Rosuvastatin Calcium 10 mg 06/07/20 22:00 06/07/20 22:23 Crestor - PO 10 mg HS [facility] Administration Senna/Docusate Sodium 2 tablet 06/07/20 17:47 Pericolace - PO DAILY PRN CONSTIPATION Impression 1. CKD 2. PVD 3. chf 4. hld 5. cad 6. dvt 7. s/p fem pop bypass Plan - cont to monitor renal function - unclear baseline product merchandiser - avoid hypotension - get am cxr - surgery follow up - check renal ultrasound - check ua
[2020-06-08 16:53] LABS: HEMATOCRIT 28.8 % (32.4-45.2); HEMOGLOBIN 9.3 GM/dL (10.7-15.3); MCH 28.8 pg (25.7-33.7); MCHC 32.3 g/dl (32.0-36.0); MEAN PLT VOLUME 8.3 fl (7.5-11.1); PLATELET COUNT 203 K/MM3 (134-434); RBC 3.24 M/mm3 (3.60-5.2); RDW 17.6 % (11.6-15.6); WHITE BLOOD COUNT 10.3 K/mm3 (4.0-10.0)
[2020-06-08 18:01] LABS: EPI CELLS >36 /uL (0-25.1); HYALINE CASTS 8 /uL (0-3.1); URINE APPEARANCE CLOUDY; URINE BACTERIA 29 /uL (0-1359); URINE BILIRUBIN NEGATIVE (NEGATIVE); URINE COLOR YELLOW; URINE GLUCOSE (UA) NEGATIVE (NEGATIVE); URINE KETONE NEGATIVE (NEGATIVE); URINE LEUK ESTERASE 1+ (NEGATIVE); URINE NITRITE NEGATIVE (NEGATIVE); URINE PROTEIN 1+ (NEGATIVE); URINE RBC 1451 /uL (0-23.9); URINE UROBILINOGEN 0.2 mg/dL (0.2-1.0); URINE WBC 154 /uL (0-25.8)
[2020-06-08] MEDS: ROSUVASTATIN CA 10 MG TABLET (FP) PO SCH (22:01)
[2020-06-08] MEDS: MIRTAZAPINE 15 MG TABLET (FP) PO SCH (22:02)
[2020-06-09] MEDS: ISOSORBIDE MONONITRATE 30 MG TAB.SR.24H (FP) PO SCH (09:42)
[2020-06-09] MEDS: ACETAMINOPHEN 500 MG TABLET (FP) PO PRN ×2 (09:42→21:39)
[2020-06-09] MEDS: CARVEDILOL 25 MG TABLET (FP) PO SCH ×2 (09:42→21:39)
[2020-06-09] MEDS: POLYETHYLENE GLYCOL 3350 119 GM BTL PO SCH (09:43)
[2020-06-09] MEDS: FUROSEMIDE 40 MG TABLET (FP) PO SCH (09:43)
[2020-06-09] MEDS: FEBUXOSTAT 40 MG TAB PO SCH (09:44)
[2020-06-09 12:31] LABS: HEMATOCRIT 23.1 % (32.4-45.2); HEMOGLOBIN 7.7 GM/dL (10.7-15.3); MCH 28.5 pg (25.7-33.7); MCHC 33.3 g/dl (32.0-36.0); MEAN CELL VOLUME 85.6 fl (80-96); MEAN PLT VOLUME 7.9 fl (7.5-11.1); PLATELET COUNT 181 K/MM3 (134-434); RBC 2.69 M/mm3 (3.60-5.2); RDW 17.2 % (11.6-15.6); WHITE BLOOD COUNT 7.5 K/mm3 (4.0-10.0)
[2020-06-09 12:39] LABS: INR 2.88 (0.83-1.09); PROTHROMBIN TIME (PATIENT) 34.4 SEC (9.7-13.0)
--- NOTE | 2020-06-09 12:44 | PN ---
Teaching Attending Note Name of Resident: Sumanth Lopez ATTENDING PHYSICIAN STATEMENT I saw and evaluated the patient. I reviewed the resident's note and discussed the case with the resident. I agree with the resident's findings and plan as documented. SUBJECTIVE: Seen and examined at bedside. Patient is alert and oriented x3. Significant l ower extremity edema with pitting edema to the thighs bilaterally. OBJECTIVE Last Vital Signs Temp Pulse Resp BP Pulse Ox 98.3 F 56 L 18 119/39 L 100 06/08/20 19:20 06/09/20 08:06 06/09/20 08:06 06/09/20 08:06 06/09/20 06:58 PE: Per resident note Labs/Imaging: reviewed ASSESSMENT/PLAN 89-year-old female past medical history of dementia, HTN, CAD, DVT, CKD, GERD, CHF with PPM, PVD, admitted to the ICU after a femoropopliteal bypass due to an ischemic right foot. #Ischemic right foot Postop day 3 status post right femoralpopliteal bypass Vascular on board Pain control #Acute blood loss anemia, postoperative Transfuse additional 1 unit to keep hemoglobin greater than 8 #GENA on CKD unknown stage Nephrology on board: Appreciate recommendations Renal ultrasound shows mildly atrophic right kidney, left kidney could not be visualized due to excessive bowel gas within the left upper quadrant Follow-up urine studies Avoid hypotension #CHF exacerbation Significantly overloaded with pitting edema to thighs bilaterally. Lungs are clear to auscultation, no hypoxia Discontinue fluids Continue Lasix 40 p.o. daily given GENA #Hypertension Hold home medications in setting of hypotension #History of gout Continue febuxustat
[2020-06-09 13:02] LABS: ALBUMIN 2.1 g/dl (3.4-5.0); ALK PHOS 121 U/L (45-117); ANION GAP 6 MMOL/L (8-16); BILIRUBIN,TOTAL 0.4 mg/dL (0.2-1); BLOOD UREA NITROGEN 36.3 mg/dL (7-18); CALCIUM 8.1 mg/dL (8.5-10.1); CHLORIDE 108 mmol/L (98-107); CO2 23 mmol/L (21-32); CREATININE 1.8 mg/dL (0.55-1.3); GLUCOSE,RANDOM 98 mg/dL (74-106); MAGNESIUM 2.4 mg/dL (1.8-2.4); POTASSIUM 4.1 mmol/L (3.5-5.1); SGOT/AST 30 U/L (15-37); SODIUM 138 mmol/L (136-145); TOT PROT 4.8 g/dl (6.4-8.2)
[2020-06-09 13:07] LABS: SGPT/ALT < 6 U/L (13-61)
--- NOTE | 2020-06-09 15:05 | PN ---
Progress Note, Physician History of Present Illness: Pt seen and examined at bedside. She is awake and appears comfortable. - Current Medication List Current Medications: Active Medications Acetaminophen (Tylenol -) 1,000 mg PO Q8H PRN PRN Reason: PAIN LEVEL 1-5 Last Admin: 06/09/20 09:42 Dose: 1,000 mg Documented by: Carvedilol (Coreg -) 25 mg PO BID [facility] Last Admin: 06/09/20 09:42 Dose: 25 mg Documented by: Febuxostat (Uloric -) 40 mg PO DAILY [facility] Last Admin: 06/09/20 09:44 Dose: 40 mg Documented by: Furosemide (Lasix -) 40 mg PO DAILY [facility] Last Admin: 06/09/20 09:43 Dose: 40 mg Documented by: Isosorbide Mononitrate (Imdur -) 30 mg PO DAILY [facility] Last Admin: 06/09/20 09:42 Dose: 30 mg Documented by: Mirtazapine (Remeron -) 7.5 mg PO [facility] Last Admin: 06/08/20 22:02 Dose: 7.5 mg Documented by: Morphine Sulfate (Morphine Sulfate) 2 mg IVPUSH Q4H PRN PRN Reason: PAIN LEVEL 1-5 Last Admin: 06/08/20 22:01 Dose: 2 mg Documented by: Polyethylene Glycol (Miralax (For Daily Use) -) 17 gm PO DAILY [facility] Last Admin: 06/09/20 09:43 Dose: 17 gm Documented by: Rosuvastatin Calcium (Crestor -) 10 mg PO [facility] Last Admin: 06/08/20 22:01 Dose: 10 mg Documented by: Senna/Docusate Sodium (Pericolace -) 2 tablet PO DAILY PRN PRN Reason: CONSTIPATION Warfarin Sodium (Coumadin -) 1 mg PO DAILY@1800 [facility] - Objective Vital Signs: Vital Signs Temperature 98.2 F 06/09/20 11:00 Pulse Rate 74 06/09/20 11:00 Respiratory Rate 18 06/09/20 13:00 Blood Pressure 150/55 L 06/09/20 11:00 O2 Sat by Pulse Oximetry (%) 100 06/09/20 06:58 Constitutional: Yes: Calm Eyes: Yes: Conjunctiva Clear HENT: Yes: Atraumatic Neck: Yes: Supple Cardiovascular: Yes: S1, S2 Respiratory: Yes: CTA Bilaterally Gastrointestinal: Yes: Soft Genitourinary: Yes: Szymanski Present Musculoskeletal: Yes: WNL Edema: Yes Edema: LLE: 2+, RLE: 2+ Neurological: Yes: Oriented Labs: CBC, BMP 06/09/20 12:12 06/09/20 12:12 INR, PTT INR 2.88 (0.83-1.09) H 06/09/20 12:12 - ....Imaging Chest X-ray: Report Reviewed Ultrasound: Report Reviewed Problem List - Problems (1) CKD (chronic kidney disease) Code(s): N18.9 - CHRONIC KIDNEY DISEASE, UNSPECIFIED (2) CAD (coronary artery disease) Code(s): I25.10 - ATHSCL HEART DISEASE OF [place] CORONARY ARTERY W/O ANG PCTRS (3) Peripheral artery disease Code(s): I73.9 - PERIPHERAL VASCULAR DISEASE, UNSPECIFIED (4) CHF (congestive heart failure) Code(s): I50.9 - HEART FAILURE, UNSPECIFIED (5) Ischemic foot Code(s): I99.8 - OTHER DISORDER OF CIRCULATORY SYSTEM Assessment/Plan Current Medications Generic Name Dose Route Start Last Admin Trade Name Freq PRN Reason Stop Dose Admin Acetaminophen 1,000 mg 06/07/20 17:47 06/09/20 09:42 Tylenol - PO 1,000 mg Q8H PRN Administration PAIN LEVEL 1-5 Carvedilol 25 mg 06/07/20 22:00 06/09/20 09:42 Coreg - PO 25 mg BID [facility] Administration Febuxostat 40 mg 06/08/20 10:00 06/09/20 09:44 Uloric - PO 40 mg DAILY [facility] Administration Furosemide 40 mg 06/08/20 10:00 06/09/20 09:43 Lasix - PO 40 mg DAILY [facility] Administration Isosorbide Mononitrate 30 mg 06/08/20 10:00 06/09/20 09:42 Imdur - PO 30 mg DAILY [facility] Administration Mirtazapine 7.5 mg 06/07/20 22:00 06/08/20 22:02 Remeron - PO 7.5 mg HS [facility] Administration Morphine Sulfate 2 mg 06/07/20 17:47 06/08/20 22:01 Morphine Sulfate IVPUSH 2 mg Q4H PRN Administration PAIN LEVEL 1-5 Polyethylene Glycol 17 gm 06/08/20 10:00 06/09/20 09:43 Miralax (For Daily Use) - PO 17 gm DAILY [facility] Administration Rosuvastatin Calcium 10 mg 06/07/20 22:00 06/08/20 22:01 Crestor - PO 10 mg HS [facility] Administration Senna/Docusate Sodium 2 tablet 06/07/20 17:47 Pericolace - PO DAILY PRN CONSTIPATION Warfarin Sodium 1 mg 06/09/20 18:00 Coumadin - PO DAILY@1800 [facility] Impression 1. CKD 2. PVD 3. chf 4. hld 5. cad 6. dvt 7. s/p fem pop bypass 8. atrophic right kidney Plan - can stop fluids - resume lasix for edema - repeat labs in am - avoid nephrotoxins - unclear baseline social media intern - avoid hypotension - surgery follow up - check ua
--- NOTE | 2020-06-09 16:45 | PN ---
Progress Note (short form) - Note Progress Note: Surgery: Pt with complaints of back pain. Nursing staff states that she has a poor appetite but is drinking fluids well. Vital Signs Period Temp Pulse Resp BP Sys/Patel Pulse Ox Last 24 Hr 98.2 F-99.6 F 55-80 11-22 100-150/31-96 93-100 UOP: 700ml GEN: Alert and follows commands RLE: inc c/d/i with carl/suture. Painted with betadine. ecchymosis. Right leg incisions x2 c/d/i with carl. Thigh/calf soft. Right foot warm and with +dp pulse with doppler. No evidnece of ischemia. Blister to heel. CBC, BMP 06/09/20 12:12 06/09/20 12:12 INR, PTT INR 2.88 (0.83-1.09) H 06/09/20 12:12 A/P: 89 yo female s/p RLE fem-pop bypass, POD#3 Pt awaiting transfer to floor Local wound care ordered for RLE Pt with INR 2.8 today, 1 mg coumadin ordered by the ICU CBC/BMP INR in the am OOB with assistance/PT Diet as tolerated Continue brady, renal consult noted. resumed lasix. D/w Dr. Em
[2020-06-09] MEDS: MORPHINE SULFATE 2 MG/ML VIAL IVPUSH PRN (17:46)
[2020-06-09] MEDS ORDERED: WARFARIN NA 1 MG TABLET PO SCH (18:00)
--- NOTE | 2020-06-09 20:42 | PN ---
Physical Exam: SUBJECTIVE: Patient seen and examined. Pt. states that she is unable to get comfortable in bed. Pt. denies any focal area of pain at this time. OBJECTIVE: Vital Signs Period Temp Pulse Resp BP Sys/Patel Pulse Ox Last 24 Hr 98 F-98.6 F 56-80 16-22 100-150/31-96 93-100 GENERAL: The patient is awake, alert, and in mild distress 2/2 discomfort. HEAD: Normal with no signs of trauma. EYES: Sclera anicteric, conjunctiva clear. No ptosis. ENT: Ears normal, nares patent, oropharynx clear without exudates, moist mucous membranes. NECK: Trachea midline, full range of motion, supple. LUNGS: Breath sounds equal, clear to auscultation bilaterally, no wheezes, no crackles, no accessory muscle use. HEART: Regular rate and rhythm, S1, S2 without murmur, rub or gallop. ABDOMEN: Soft, obese, nontender, nondistended, normoactive bowel sounds, no guarding, no rebound EXTREMITIES: 2+ radial pulses, warm, no calf tenderness well-perfused, no edema. Bandaged RLE c/d/i NEUROLOGICAL: Normal speech, gait not observed. PSYCH: Normal mood, normal affect. SKIN: Warm, dry, normal turgor, no rashes or lesions noted Laboratory Results - last 24 hr 06/06/20 06/09/20 06/09/20 18:24 12:12 12:12 WBC 7.5 RBC 2.69 L Hgb 7.7 L Hct 23.1 L D MCV 85.6 MCH 28.5 MCHC 33.3 RDW 17.2 H Plt Count 181 MPV 7.9 PT with INR 34.40 H INR 2.88 H Sodium Potassium Chloride Carbon Dioxide Anion Gap BUN Creatinine Est GFR (CKD-EPI)AfAm Est GFR (CKD-EPI)NonAf Random Glucose Calcium Magnesium Total Bilirubin AST ALT Alkaline Phosphatase Total Protein Albumin Crossmatch See Detail 06/09/20 12:12 WBC RBC Hgb Hct MCV MCH MCHC RDW Plt Count MPV PT with INR INR Sodium 138 Potassium 4.1 Chloride 108 H Carbon Dioxide 23 Anion Gap 6 L BUN 36.3 H Creatinine 1.8 H Est GFR (CKD-EPI)AfAm 28.42 Est GFR (CKD-EPI)NonAf 24.52 Random Glucose 98 Calcium 8.1 L Magnesium 2.4 Total Bilirubin 0.4 AST 30 ALT < 6 L Alkaline Phosphatase 121 H Total Protein 4.8 L Albumin 2.1 L Crossmatch Active Medications Generic Name Dose Route Start Last Admin Trade Name Freq PRN Reason Stop Dose Admin Acetaminophen 1,000 mg 06/07/20 17:47 06/09/20 09:42 Tylenol - PO 1,000 mg Q8H PRN Administration PAIN LEVEL 1-5 Carvedilol 25 mg 06/07/20 22:00 06/09/20 09:42 Coreg - PO 25 mg BID [facility] Administration Febuxostat 40 mg 06/08/20 10:00 06/09/20 09:44 Uloric - PO 40 mg DAILY [facility] Administration Furosemide 40 mg 06/08/20 10:00 06/09/20 09:43 Lasix - PO 40 mg DAILY [facility] Administration Isosorbide Mononitrate 30 mg 06/08/20 10:00 06/09/20 09:42 Imdur - PO 30 mg DAILY [facility] Administration Mirtazapine 7.5 mg 06/07/20 22:00 06/08/20 22:02 Remeron - PO 7.5 mg HS [facility] Administration Morphine Sulfate 2 mg 06/07/20 17:47 06/09/20 17:46 Morphine Sulfate IVPUSH 2 mg Q4H PRN Administration PAIN LEVEL 1-5 Polyethylene Glycol 17 gm 06/08/20 10:00 06/09/20 09:43 Miralax (For Daily Use) - PO 17 gm DAILY [facility] Administration Rosuvastatin Calcium 10 mg 06/07/20 22:00 06/08/20 22:01 Crestor - PO 10 mg HS [facility] Administration Senna/Docusate Sodium 2 tablet 06/07/20 17:47 Pericolace - PO DAILY PRN CONSTIPATION Warfarin Sodium 1 mg 06/09/20 18:00 06/09/20 17:47 Coumadin - PO 1 mg DAILY@1800 [facility] Administration ASSESSMENT/PLAN: 89-year-old female past medical history of dementia, HTN, CAD, DVT, CKD, Gout, GERD, CHF with PPM, PVD, admitted to the ICU after a femoropopliteal bypass due to an ischemic right foot. #PVD #Ischemic right foot POD # 3 s/p right femoralpopliteal bypass Vascular on board Pain control -Pulses remain doppler-able #Acute blood loss anemia, postoperative Transfuse additional 1 unit to keep hemoglobin greater than 8 -Will have received 2 units total #CAD #Hypertension #CHF exacerbation #GENA on CKD unknown stage Nephrology consult appreciated Renal ultrasound shows mildly atrophic right kidney, left kidney could not be visualized due to excessive bowel gas within the left upper quadrant Follow-up urine studies Avoid hypotension Discontinue fluids Continue Lasix 40 p.o. daily given GENA -Pt. has significant LE edema without Lung involvement--> likely R. sided heart failure c/w Coreg #History of gout Continue febuxustat #FEN d/c IVF, encourage PO intake monitor electrolytes and replete PRN Sodium controlled diet #DVT PPx. INR 2.88 today, will resume Coumadin at reduced dose to prevent complete normalization of INR #Dispo observe on M/S as Pt. is now on home Lasix regimen. Visit type - Emergency Visit Emergency Visit: Yes ED Registration Date: 06/06/20 Care time: The patient presented to the Emergency Department on the above date and was hospitalized for further evaluation of their emergent condition. - New Patient This patient is new to me today: Yes Date on this admission: 06/09/20 - Critical Care Critical Care patient: Yes Total Critical Care Time (in minutes): 35 Critical Care Statement: The care of this patient involved high complexity decision making to prevent further life threatening deterioration of the pat ient's condition and/or to evaluate & treat vital organ system(s) failure or risk of failure. - Medication Review Med list reviewed for High Risk Meds patients 65 and older: Yes ATTENDING PHYSICIAN STATEMENT I saw and evaluated the patient. I reviewed the resident's note and discussed the case with the resident. I agree with the resident's findings and plan as documented. SUBJECTIVE: OBJECTIVE: ASSESSMENT AND PLAN:
[2020-06-09] MEDS: ROSUVASTATIN CA 10 MG TABLET (FP) PO SCH (21:39)
[2020-06-09] MEDS: MIRTAZAPINE 15 MG TABLET (FP) PO SCH (23:03)
[2020-06-10] MEDS ORDERED: PT OWN MED DRAWER 7, Y5N ONE ×3 (04:57→10:34)
[2020-06-10] MEDS: MORPHINE SULFATE 2 MG/ML VIAL IVPUSH PRN ×2 (06:27→17:20)
[2020-06-10] MEDS: ACETAMINOPHEN 500 MG TABLET (FP) PO PRN (08:15)
[2020-06-10 08:35] LABS: BASO % 0.5 % (0-2.0); EOS % 7.1 % (0-4.5); HEMOGLOBIN 7.8 GM/dL (10.7-15.3); LYMPH % 7.9 % (8-40); MCH 28.5 pg (25.7-33.7); MEAN CELL VOLUME 83.8 fl (80-96); MEAN PLT VOLUME 7.9 fl (7.5-11.1); MONO % 5.8 % (3.8-10.2); NEUT % 78.7 % (42.8-82.8); PLATELET COUNT 209 K/MM3 (134-434); RBC 2.75 M/mm3 (3.60-5.2); RDW 17.2 % (11.6-15.6); WHITE BLOOD COUNT 7.4 K/mm3 (4.0-10.0)
[2020-06-10 08:52] LABS: INR 3.07 (0.83-1.09); PROTHROMBIN TIME (PATIENT) 36.6 SEC (9.7-13.0)
[2020-06-10 08:54] LABS: BLOOD UREA NITROGEN 39.1 mg/dL (7-18); CALCIUM 8.6 mg/dL (8.5-10.1); CREATININE 1.7 mg/dL (0.55-1.3); MAGNESIUM 2.2 mg/dL (1.8-2.4); PHOSPHOROUS 3.1 mg/dL (2.5-4.9); POTASSIUM 4.1 mmol/L (3.5-5.1)
[2020-06-10 08:55] LABS: ACTIVATED PTT 35.2 SECONDS (25.2-36.5)
--- NOTE | 2020-06-10 09:13 | PN ---
Progress Note (short form) - Note Progress Note: POD 4, s/p right lower extremity femoral popliteal bypass with PTFE graft c/b acute blood loss anemia, s/p ?2 units pRBCs Surgery: Pt seen and examined. Reports significant back pain from being in bed. Tolerating PO, poor appetite, has not been oob. Brady in place. No issues overnight. Denies cp/sob, n/v/d. Vital Signs Temp 98.6 F 06/09/20 20:00 Pulse 64 06/10/20 06:15 Resp 16 06/10/20 06:15 BP 113/72 06/10/20 06:15 Pulse Ox 97 06/10/20 06:15 Intake & Output 06/09/20 06/09/20 06/10/20 11:59 23:59 11:59 Intake Total 1700 970 Output Total 736 925 8783 Balance 1400 570 -1000 Weight 183 lb 8 oz Intake: IV 1200 300 saline 1200 300 Oral 500 670 Output: Urine 693 766 9189 Brady [id number] Other: Voiding Method Indwelling Catheter Indwelling Catheter Bowel Movement No No Weight Measurement Method [facility], BMP 06/10/20 08:07 06/10/20 08:07 GEN: Awake, Alert, following commands RLE: R groin incision c/d/i with carl/suture. No erythema or drainage. ++ e cchymosis extending onto pubic region, + ttp. Painted with betadine and re- dressed with 4x4s and tegaderm. Right leg incision (distal thigh/calf) x2 c/d/i with carl, painted with betadine and re-dressed with 4x4's and tegaderms. Thigh/calf soft. No erythema or drainage noted, no ecchymosis present. Right foot warm and with biphasic dp pulse appreciated with doppler. Multiple superficial excoriations circumferentially, over distal calf, no erythema or drainage. Large fluid filled blister at heel, no erythema or drainage, allevyn in place. A/P: 89 y/o F w/ PMHx dementia, HTN, CAD, DVTs, CKD, GERD, constipation, cardiac pacemaker (on coumadin), HLD, PVD, & Heart failure, found to have ischemic right foot during evaluation at outside office, , now s/p right lower extremity femoral popliteal bypass with PTFE graft c/b acute blood loss anemia, s/p ?2 units pRBCs Incisions stable Biphasic signal over R dp Stable groin ecchymosis Labs/vitals noted Pt awaiting transfer to floor Transfuse prn Continue local wound care to rle Continue Coumadin, monitor INR CBC/BMP INR in the am OOB with assistance/PT Diet as tolerated If okay with renal, may remove brady D/w Dr. Em
[2020-06-10] MEDS: FUROSEMIDE 40 MG TABLET (FP) PO SCH (09:57)
[2020-06-10] MEDS: CARVEDILOL 25 MG TABLET (FP) PO SCH ×3 (09:57→22:36)
[2020-06-10] MEDS: ISOSORBIDE MONONITRATE 30 MG TAB.SR.24H (FP) PO SCH ×2 (09:57→10:58)
[2020-06-10] MEDS ORDERED: ceFAZolin SODIUM 1 GM VIAL ONE ×2 (10:28→17:18)
[2020-06-10] MEDS ORDERED: DEXTROSE 5%-WATER - 50 ML IVPB ONE ×2 (10:28→17:19)
[2020-06-10] MEDS: CEFAZOLIN 1 GM in DEXTROSE 5%-WATER - 50 ML IVPB SCH ×2 (10:32→17:26)
[2020-06-10] MEDS: FEBUXOSTAT 40 MG TAB PO SCH (10:35)
[2020-06-10] MEDS: POLYETHYLENE GLYCOL 3350 119 GM BTL PO SCH (11:24)
--- NOTE | 2020-06-10 12:03 | PN ---
Physical Exam: SUBJECTIVE: Patient seen and examined at bedside. Complains of back pain. No acute events overnight. OBJECTIVE: Vital Signs Period Temp Pulse Resp BP Sys/Patel Pulse Ox Last 24 Hr 98 F-98.6 F 51-80 14-20 113-157/44-76 92-99 GENERAL: The patient is awake, alert, and in mild distress 2/2 discomfort. HEAD: Normal with no signs of trauma. EYES: Sclera anicteric, conjunctiva clear. No ptosis. ENT: Ears normal, nares patent, oropharynx clear without exudates, moist mucous membranes. NECK: Trachea midline, full range of motion, supple. LUNGS: Breath sounds equal, clear to auscultation bilaterally, no wheezes, no crackles, no accessory muscle use. HEART: Regular rate and rhythm, S1, S2 without murmur, rub or gallop. ABDOMEN: Soft, obese, nontender, nondistended, normoactive bowel sounds, no guarding, no rebound EXTREMITIES: 2+ radial pulses, warm, no calf tenderness well-perfused, no edema. Bandaged RLE c/d/i NEUROLOGICAL: Normal speech, gait not observed. PSYCH: Normal mood, normal affect. SKIN: Warm, dry, normal turgor, no rashes or lesions noted Laboratory Results - last 24 hr 06/06/20 06/09/20 06/09/20 18:24 12:12 12:12 WBC 7.5 RBC 2.69 L Hgb 7.7 L Hct 23.1 L D MCV 85.6 MCH 28.5 MCHC 33.3 RDW 17.2 H Plt Count 181 MPV 7.9 Absolute Neuts (auto) Neutrophils % Lymphocytes % Monocytes % Eosinophils % Basophils % Nucleated RBC % PT with INR 34.40 H INR 2.88 H PTT (Actin FS) Sodium Potassium Chloride Carbon Dioxide Anion Gap BUN Creatinine Est GFR (CKD-EPI)AfAm Est GFR (CKD-EPI)NonAf Random Glucose Calcium Phosphorus Magnesium Total Bilirubin AST ALT Alkaline Phosphatase Total Protein Albumin Crossmatch See Detail 06/09/20 06/10/20 06/10/20 12:12 08:07 08:07 WBC 7.4 RBC 2.75 L Hgb 7.8 L Hct 23.0 L MCV 83.8 MCH 28.5 MCHC 34.0 RDW 17.2 H Plt Count 209 MPV 7.9 Absolute Neuts (auto) 5.8 Neutrophils % 78.7 Lymphocytes % 7.9 L D Monocytes % 5.8 Eosinophils % 7.1 H D Basophils % 0.5 Nucleated RBC % 0 PT with INR 36.60 H INR 3.07 H PTT (Actin FS) 35.2 Sodium 138 Potassium 4.1 Chloride 108 H Carbon Dioxide 23 Anion Gap 6 L BUN 36.3 H Creatinine 1.8 H Est GFR (CKD-EPI)AfAm 28.42 Est GFR (CKD-EPI)NonAf 24.52 Random Glucose 98 Calcium 8.1 L Phosphorus Magnesium 2.4 Total Bilirubin 0.4 AST 30 ALT < 6 L Alkaline Phosphatase 121 H Total Protein 4.8 L Albumin 2.1 L Crossmatch 06/10/20 08:07 WBC RBC Hgb Hct MCV MCH MCHC RDW Plt Count MPV Absolute Neuts (auto) Neutrophils % Lymphocytes % Monocytes % Eosinophils % Basophils % Nucleated RBC % PT with INR INR PTT (Actin FS) Sodium 139 Potassium 4.1 Chloride 109 H Carbon Dioxide 22 Anion Gap 8 BUN 39.1 H Creatinine 1.7 H Est GFR (CKD-EPI)AfAm 30.45 Est GFR (CKD-EPI)NonAf 26.28 Random Glucose 104 Calcium 8.6 Phosphorus 3.1 Magnesium 2.2 Total Bilirubin AST ALT Alkaline Phosphatase Total Protein Albumin Crossmatch Active Medications Generic Name Dose Route Start Last Admin Trade Name Freq PRN Reason Stop Dose Admin Acetaminophen 1,000 mg 06/07/20 17:47 06/10/20 08:15 Tylenol - PO 1,000 mg Q8H PRN Administration PAIN LEVEL 1-5 Carvedilol 25 mg 06/07/20 22:00 06/10/20 11:25 Coreg - PO Not Given BID MALINA Febuxostat 40 mg 06/08/20 10:00 06/10/20 10:35 Uloric - PO 40 mg DAILY MALINA Administration Furosemide 40 mg 06/08/20 10:00 06/10/20 09:57 Lasix - PO 40 mg DAILY MALINA Administration Cefazolin Sodium 1 gm/ 50 mls @ 100 mls/hr 06/10/20 10:00 06/10/20 10:32 Dextrose IVPB 100 mls/hr Q8H-IV MALINA Administration Isosorbide Mononitrate 30 mg 06/08/20 10:00 06/10/20 10:58 Imdur - PO Not Given DAILY MALINA Mirtazapine 7.5 mg 06/07/20 22:00 06/09/20 23:03 Remeron - PO 7.5 mg HS MALINA Administration Morphine Sulfate 2 mg 06/07/20 17:47 06/10/20 06:27 Morphine Sulfate IVPUSH 2 mg Q4H PRN Administration PAIN LEVEL 1-5 Polyethylene Glycol 17 gm 06/08/20 10:00 06/10/20 11:24 Miralax (For Daily Use) - PO 17 gm DAILY MALINA Administration Rosuvastatin Calcium 10 mg 06/07/20 22:00 06/09/20 21:39 Crestor - PO 10 mg HS MALINA Administration Senna/Docusate Sodium 2 tablet 06/07/20 17:47 Pericolace - PO DAILY PRN CONSTIPATION Warfarin Sodium 1 mg 06/09/20 18:00 06/09/20 17:47 Coumadin - PO 1 mg DAILY@1800 MALINA Administration ASSESSMENT/PLAN: 89-year-old female past medical history of dementia, HTN, CAD, DVT, CKD, Gout, GERD, CHF with PPM, PVD, admitted to the ICU after a femoropopliteal bypass due to an ischemic right foot. #Ischemic right foot; POD # 4 s/p right femoralpopliteal bypass Vascular on board; cont daily wound care Pain control -OOB w/ assistance/PT -Pulses remain doppler-able #Acute blood loss anemia, postoperative; Hgb 7.8 today Will tranfuse 1U pRBC today -total will be 3U this admission -trend CBCs; maintain Hgb >8 #GENA on CKD unknown stage Nephrology consult appreciated Renal ultrasound shows mildly atrophic right kidney, left kidney could not be visualized due to excessive bowel gas within the left upper quadrant Follow-up urine studies Avoid hypotension Cont PO Lasix 40 mg -Pt. has significant LE edema without Lung involvement--> likely R. sided heart failure Will hold Coreg today given borderline BP/HR #CAD; Cont home med: Crestor 10 HS #Hypertension; Hold home Coreg for now given borderline BP #CHF exacerbation -Cont Lasix 40 mg PO #History of gout; Cont home med: Febuxostat 40 QD #FEN -PO hydration -monitor electrolytes and replete PRN -Sodium controlled diet #Prophylaxis DVT: INR 3.07 today, will hold current dose today; check INR in AM #Dispo -Observe on M/S as pt is now on home Lasix regimen. Visit type - Emergency Visit Emergency Visit: Yes ED Registration Date: 06/06/20 Care time: The patient presented to the Emergency Department on the above date and was hospitalized for further evaluation of their emergent condition. - New Patient This patient is new to me today: Yes Date on this admission: 06/10/20 - Critical Care Critical Care patient: No - Discharge Referral Referred to [facility] No - Medication Review Med list reviewed for High Risk Meds patients 65 and older: Yes ATTENDING PHYSICIAN STATEMENT I saw and evaluated the patient. I reviewed the resident's note and discussed the case with the resident. I agree with the resident's findings and plan as documented. SUBJECTIVE: OBJECTIVE: ASSESSMENT AND PLAN:
--- NOTE | 2020-06-10 12:20 | PN ---
Teaching Attending Note Name of Resident: Shellie Pfeiffer ATTENDING PHYSICIAN STATEMENT I saw and evaluated the patient. I reviewed the resident's note and discussed the case with the resident. I agree with the resident's findings and plan as documented. SUBJECTIVE: Seen and examined at bedside. Hemoglobin remains at 7.7 despite being trans fused 1 unit yesterday. Will transfuse additional unit today. Blood pressure borderline low this morning, held carvedilol and nifedipine OBJECTIVE Last Vital Signs Temp Pulse Resp BP Pulse Ox 98.6 F 64 16 113/72 97 06/09/20 20:00 06/10/20 06:15 06/10/20 09:00 06/10/20 06:15 06/10/20 09:00 PE: Per resident note Labs/Imaging: reviewed ASSESSMENT/PLAN 89-year-old female past medical history of dementia, HTN, CAD, DVT, CKD, GERD, CHF with PPM, PVD, admitted to the ICU after a femoropopliteal bypass due to an ischemic right foot. #Ischemic right foot Postop day 3 status post right femoralpopliteal bypass Vascular on board Pain control #Acute blood loss anemia, postoperative Transfuse additional 1 unit to keep hemoglobin greater than 8 -will be total 3 units #GENA on CKD unknown stage Nephrology on board: Appreciate recommendations Renal ultrasound shows mildly atrophic right kidney, left kidney could not be visualized due to excessive bowel gas within the left upper quadrant Follow-up urine studies Avoid hypotension #CHF exacerbation Significantly overloaded with pitting edema to thighs R>L. Lungs are clear to auscultation, no hypoxia Discontinue fluids Continue Lasix 40 p.o. daily given GENA #Hypertension Hold home medications in setting of hypotension #History of gout Continue febuxustat
--- NOTE | 2020-06-10 16:31 | PN ---
Progress Note, Physician History of Present Illness: Pt seen and examined at bedside. She is awake and appears comfortable. She denies shortness of breath. - Current Medication List Current Medications: Active Medications Acetaminophen (Tylenol -) 1,000 mg PO Q8H PRN PRN Reason: PAIN LEVEL 1-5 Last Admin: 06/10/20 08:15 Dose: 1,000 mg Documented by: Carvedilol (Coreg -) 25 mg PO BID [facility] Last Admin: 06/10/20 11:25 Dose: Not Given Documented by: Febuxostat (Uloric -) 40 mg PO DAILY [facility] Last Admin: 06/10/20 10:35 Dose: 40 mg Documented by: Furosemide (Lasix -) 40 mg PO DAILY [facility] Last Admin: 06/10/20 09:57 Dose: 40 mg Documented by: Cefazolin Sodium 1 gm/ (Dextrose) 50 mls @ 100 mls/hr IVPB Q8H-IV [facility] Last Admin: 06/10/20 10:32 Dose: 100 mls/hr Documented by: Isosorbide Mononitrate (Imdur -) 30 mg PO DAILY [facility] Last Admin: 06/10/20 10:58 Dose: Not Given Documented by: Mirtazapine (Remeron -) 7.5 mg PO HS [facility] Last Admin: 06/09/20 23:03 Dose: 7.5 mg Documented by: Morphine Sulfate (Morphine Sulfate) 2 mg IVPUSH Q4H PRN PRN Reason: PAIN LEVEL 1-5 Last Admin: 06/10/20 06:27 Dose: 2 mg Documented by: Polyethylene Glycol (Miralax (For Daily Use) -) 17 gm PO DAILY [facility] Last Admin: 06/10/20 11:24 Dose: 17 gm Documented by: Rosuvastatin Calcium (Crestor -) 10 mg PO HS [facility] Last Admin: 06/09/20 21:39 Dose: 10 mg Documented by: Senna/Docusate Sodium (Pericolace -) 2 tablet PO DAILY PRN PRN Reason: CONSTIPATION Warfarin Sodium (Coumadin -) 1 mg PO DAILY@1800 [facility] Last Admin: 06/09/20 17:47 Dose: 1 mg Documented by: - Objective Vital Signs: Vital Signs Temperature 98.0 F 06/10/20 14:00 Pulse Rate 50 L 06/10/20 14:00 Respiratory Rate 18 06/10/20 14:00 Blood Pressure 154/45 L 06/10/20 14:00 O2 Sat by Pulse Oximetry (%) 100 06/10/20 14:00 Constitutional: Yes: Calm Eyes: Yes: Conjunctiva Clear HENT: Yes: Atraumatic Neck: Yes: Supple Cardiovascular: Yes: S1, S2 Respiratory: Yes: CTA Bilaterally Gastrointestinal: Yes: Soft Edema: Yes (improved) Edema: LLE: Trace, RLE: Trace Neurological: Yes: Confusion Labs: CBC, BMP 06/10/20 08:07 06/10/20 08:07 INR, PTT INR 3.07 (0.83-1.09) H 06/10/20 08:07 Problem List - Problems (1) CKD (chronic kidney disease) Code(s): N18.9 - CHRONIC KIDNEY DISEASE, UNSPECIFIED (2) CAD (coronary artery disease) Code(s): I25.10 - ATHSCL HEART DISEASE OF [place] CORONARY ARTERY W/O ANG PCTRS (3) Peripheral artery disease Code(s): I73.9 - PERIPHERAL VASCULAR DISEASE, UNSPECIFIED (4) CHF (congestive heart failure) Code(s): I50.9 - HEART FAILURE, UNSPECIFIED (5) Ischemic foot Code(s): I99.8 - OTHER DISORDER OF CIRCULATORY SYSTEM Assessment/Plan Current Medications Generic Name Dose Route Start Last Admin Trade Name Freq PRN Reason Stop Dose Admin Acetaminophen 1,000 mg 06/07/20 17:47 06/10/20 08:15 Tylenol - PO 1,000 mg Q8H PRN Administration PAIN LEVEL 1-5 Carvedilol 25 mg 06/07/20 22:00 06/10/20 11:25 Coreg - PO Not Given BID MALINA Febuxostat 40 mg 06/08/20 10:00 06/10/20 10:35 Uloric - PO 40 mg DAILY MALINA Administration Furosemide 40 mg 06/08/20 10:00 06/10/20 09:57 Lasix - PO 40 mg DAILY MALINA Administration Cefazolin Sodium 1 gm/ 50 mls @ 100 mls/hr 06/10/20 10:00 06/10/20 10:32 Dextrose IVPB 100 mls/hr Q8H-IV MALINA Administration Isosorbide Mononitrate 30 mg 06/08/20 10:00 06/10/20 10:58 Imdur - PO Not Given DAILY MALINA Mirtazapine 7.5 mg 06/07/20 22:00 06/09/20 23:03 Remeron - PO 7.5 mg HS MALINA Administration Morphine Sulfate 2 mg 06/07/20 17:47 06/10/20 06:27 Morphine Sulfate IVPUSH 2 mg Q4H PRN Administration PAIN LEVEL 1-5 Polyethylene Glycol 17 gm 06/08/20 10:00 06/10/20 11:24 Miralax (For Daily Use) - PO 17 gm DAILY MALINA Administration Rosuvastatin Calcium 10 mg 06/07/20 22:00 06/09/20 21:39 Crestor - PO 10 mg HS MALINA Administration Senna/Docusate Sodium 2 tablet 06/07/20 17:47 Pericolace - PO DAILY PRN CONSTIPATION Warfarin Sodium 1 mg 06/09/20 18:00 06/09/20 17:47 Coumadin - PO 1 mg DAILY@1800 MALINA Administration Laboratory Tests 06/08/20 17:00 Urine Protein 1+ H Urine Blood 3+ H Impression 1. CKD 2. PVD 3. chf 4. hld 5. cad 6. dvt 7. s/p fem pop bypass 8. atrophic right kidney Plan - monitor renal function - clinical laboratory assistant appears stable - cont lasix - edema improving - avoid hypotension - surgery follow up - check ua
[2020-06-10] MEDS: MIRTAZAPINE 15 MG TABLET (FP) PO SCH (22:36)
[2020-06-10] MEDS: ROSUVASTATIN CA 10 MG TABLET (FP) PO SCH (22:36)
[2020-06-11 01:49] LABS: HEMATOCRIT 26.4 % (32.4-45.2); HEMOGLOBIN 8.9 GM/dL (10.7-15.3); MCH 29.1 pg (25.7-33.7); MCHC 33.7 g/dl (32.0-36.0); MEAN CELL VOLUME 86.3 fl (80-96); MEAN PLT VOLUME 7.9 fl (7.5-11.1); PLATELET COUNT 213 K/MM3 (134-434); RBC 3.05 M/mm3 (3.60-5.2); WHITE BLOOD COUNT 5.9 K/mm3 (4.0-10.0)
[2020-06-11 02:10] LABS: INR 3.14 (0.83-1.09); PROTHROMBIN TIME (PATIENT) 37.5 SEC (9.7-13.0)
[2020-06-11] MEDS ORDERED: ceFAZolin SODIUM 1 GM VIAL ONE ×3 (02:11→16:02)
[2020-06-11] MEDS ORDERED: DEXTROSE 5%-WATER - 50 ML IVPB ONE ×3 (02:12→16:02)
[2020-06-11] MEDS: CEFAZOLIN 1 GM in DEXTROSE 5%-WATER - 50 ML IVPB SCH ×3 (02:15→17:40)
[2020-06-11] MEDS ORDERED: PT OWN MED DRAWER 7, Y5N ONE (08:38)
[2020-06-11] MEDS: ACETAMINOPHEN 500 MG TABLET (FP) PO PRN ×2 (08:40→16:31)
[2020-06-11] MEDS: CARVEDILOL 25 MG TABLET (FP) PO SCH ×2 (09:19→21:32)
[2020-06-11] MEDS: FUROSEMIDE 40 MG TABLET (FP) PO SCH (09:20)
[2020-06-11] MEDS: ISOSORBIDE MONONITRATE 30 MG TAB.SR.24H (FP) PO SCH (09:20)
[2020-06-11] MEDS: FEBUXOSTAT 40 MG TAB PO SCH (09:21)
[2020-06-11] MEDS: POLYETHYLENE GLYCOL 3350 119 GM BTL PO SCH (09:25)
--- NOTE | 2020-06-11 12:20 | PN ---
Progress Note, Physician History of Present Illness: Pt seen and examined at bedside. She is awake and appears comfortable. She denies shortness of breath. - Current Medication List Current Medications: Active Medications Acetaminophen (Tylenol -) 1,000 mg PO Q8H PRN PRN Reason: PAIN LEVEL 1-5 Last Admin: 06/11/20 08:40 Dose: 1,000 mg Documented by: Carvedilol (Coreg -) 25 mg PO BID [facility] Last Admin: 06/11/20 09:19 Dose: 25 mg Documented by: Febuxostat (Uloric -) 40 mg PO DAILY [facility] Last Admin: 06/11/20 09:21 Dose: 40 mg Documented by: Furosemide (Lasix -) 40 mg PO DAILY [facility] Last Admin: 06/11/20 09:20 Dose: 40 mg Documented by: Cefazolin Sodium 1 gm/ (Dextrose) 50 mls @ 100 mls/hr IVPB Q8H-IV [facility] Last Admin: 06/11/20 09:19 Dose: 100 mls/hr Documented by: Isosorbide Mononitrate (Imdur -) 30 mg PO DAILY [facility] Last Admin: 06/11/20 09:20 Dose: 30 mg Documented by: Mirtazapine (Remeron -) 7.5 mg PO HS [facility] Last Admin: 06/10/20 22:36 Dose: Not Given Documented by: Polyethylene Glycol (Miralax (For Daily Use) -) 17 gm PO DAILY [facility] Last Admin: 06/11/20 09:25 Dose: 17 gm Documented by: Rosuvastatin Calcium (Crestor -) 10 mg PO HS [facility] Last Admin: 06/10/20 22:36 Dose: Not Given Documented by: Senna/Docusate Sodium (Pericolace -) 2 tablet PO DAILY PRN PRN Reason: CONSTIPATION Warfarin Sodium (Coumadin -) 1 mg PO DAILY@1800 [facility] Last Admin: 06/09/20 17:47 Dose: 1 mg Documented by: - Objective Vital Signs: Vital Signs Temperature 98 F 06/11/20 12:02 Pulse Rate 56 L 06/11/20 12:01 Respiratory Rate 18 06/11/20 12:01 Blood Pressure 155/73 06/11/20 11:00 O2 Sat by Pulse Oximetry (%) 98 06/11/20 07:50 Constitutional: Yes: Calm Eyes: Yes: Conjunctiva Clear HENT: Yes: Atraumatic Cardiovascular: Yes: S1, S2 Respiratory: Yes: CTA Bilaterally Gastrointestinal: Yes: Soft Genitourinary: Yes: Szymanski Present Musculoskeletal: Yes: Muscle Weakness Edema: Yes Edema: LLE: Trace, RLE: Trace Neurological: Yes: Confusion Labs: CBC, BMP 06/11/20 01:03 06/10/20 08:07 INR, PTT INR 3.14 (0.83-1.09) H 06/11/20 01:03 Fibrinogen > 500.0 mg/dL (238-498) H 06/11/20 01:03 Problem List - Problems (1) CKD (chronic kidney disease) Code(s): N18.9 - CHRONIC KIDNEY DISEASE, UNSPECIFIED (2) CAD (coronary artery disease) Code(s): I25.10 - ATHSCL HEART DISEASE OF [place] CORONARY ARTERY W/O ANG PCTRS (3) Peripheral artery disease Code(s): I73.9 - PERIPHERAL VASCULAR DISEASE, UNSPECIFIED (4) CHF (congestive heart failure) Code(s): I50.9 - HEART FAILURE, UNSPECIFIED (5) Ischemic foot Code(s): I99.8 - OTHER DISORDER OF CIRCULATORY SYSTEM Assessment/Plan Current Medications Generic Name Dose Route Start Last Admin Trade Name Freq PRN Reason Stop Dose Admin Acetaminophen 1,000 mg 06/07/20 17:47 06/11/20 08:40 Tylenol - PO 1,000 mg Q8H PRN Administration PAIN LEVEL 1-5 Carvedilol 25 mg 06/07/20 22:00 06/11/20 09:19 Coreg - PO 25 mg BID MALINA Administration Febuxostat 40 mg 06/08/20 10:00 06/11/20 09:21 Uloric - PO 40 mg DAILY MALINA Administration Furosemide 40 mg 06/08/20 10:00 06/11/20 09:20 Lasix - PO 40 mg DAILY MALINA Administration Cefazolin Sodium 1 gm/ 50 mls @ 100 mls/hr 06/10/20 10:00 06/11/20 09:19 Dextrose IVPB 100 mls/hr Q8H-IV MALINA Administration Isosorbide Mononitrate 30 mg 06/08/20 10:00 06/11/20 09:20 Imdur - PO 30 mg DAILY MALINA Administration Mirtazapine 7.5 mg 06/07/20 22:00 06/10/20 22:36 Remeron - PO Not Given HS MALINA Polyethylene Glycol 17 gm 06/08/20 10:00 06/11/20 09:25 Miralax (For Daily Use) - PO 17 gm DAILY [facility]INA Administration Rosuvastatin Calcium 10 mg 06/07/20 22:00 06/10/20 22:36 Crestor - PO Not Given HS MALINA Senna/Docusate Sodium 2 tablet 06/07/20 17:47 Pericolace - PO DAILY PRN CONSTIPATION Warfarin Sodium 1 mg 06/09/20 18:00 06/09/20 17:47 Coumadin - PO 1 mg DAILY@1800 MALINA Administration Impression 1. CKD 2. PVD 3. chf 4. hld 5. cad 6. dvt 7. s/p fem pop bypass 8. atrophic right kidney Plan - check bmp - cont lasix - avoid nsaids - edema improving - avoid hypotension - surgery follow up - follow ua
--- NOTE | 2020-06-11 12:31 | PN ---
Teaching Attending Note Name of Resident: Merary Armijo ATTENDING PHYSICIAN STATEMENT I saw and evaluated the patient. I reviewed the resident's note and discussed the case with the resident. I agree with the resident's findings and plan as documented. SUBJECTIVE: Seen and examined at bedside. Hemoglobin at 8.9 with appropriate response to transfusion. Right lower extremity shows DVT. Patient was recently diagnosed with DVT 1 month ago. Will follow-up previous records and compare to make sure clot is not propagating while on Coumadin. OBJECTIVE Last Vital Signs Temp Pulse Resp BP Pulse Ox 98 F 56 L 18 155/73 98 06/11/20 12:02 06/11/20 12:01 06/11/20 12:01 06/11/20 11:00 06/11/20 07:50 PE: Per resident note Labs/Imaging: reviewed ASSESSMENT/PLAN 89-year-old female past medical history of dementia, HTN, CAD, DVT, CKD, GERD, CHF with PPM, PVD, admitted to the ICU after a femoropopliteal bypass due to an ischemic right foot. #Ischemic right foot Postop day 5 status post right femoralpopliteal bypass Vascular on board Pain control #DVT, uncertain chronicity Per chart patient was diagnosed with a DVT in mid April and placed on Coumadin. Ultrasound from 06/10 still shows DVT Compare previous imaging to recent imaging to ensure clot is not propagating while on Coumadin #Acute blood loss anemia, postoperative Transfuse additional 1 unit to keep hemoglobin greater than 8 -s/p total 3 units #GENA on CKD unknown stage Nephrology on board: Appreciate recommendations Renal ultrasound shows mildly atrophic right kidney, left kidney could not be visualized due to excessive bowel gas within the left upper quadrant Avoid hypotension #CHF exacerbation LE edema improved. Lungs are clear to auscultation, no hypoxia Continue Lasix 40 p.o. daily #Hypertension cont coreg, imdur, lasix #History of gout Continue febuxustat
--- NOTE | 2020-06-11 12:54 | PN ---
Physical Exam: SUBJECTIVE: Patient seen and examined [facility] patient had been refusing her medications overnight; she states she is in a lot of pain; RLE US shows DVT in femoral and popliteal vein OBJECTIVE: Vital Signs Period Temp Pulse Resp BP Sys/Patel Pulse Ox Last 24 Hr 97.8 F-98.2 F 50-82 11-18 127-185/40-100 95-100 GENERAL: The patient is awake, alert, and fully oriented, in slight acute distress. EYES: PERRL, EOMI no scleral icterus . NECK: no JVD no lymphadenpoathy LUNGS:CTA B l no rales, rhonchi or wheezing HEART: Regular rate and rhythm, S1, S2 without murmur, rub or gallop. ABDOMEN: Soft, NT nD +BS in all 4 quadrants EXTREMITIES: 2+ pulses, warm, well-perfused, RLE >LLE in size NEUROLOGICAL: Cranial nerves II through XII grossly intact. Normal speech, gait not observed. PSYCH: Normal mood, normal affect. SKIN: Warm, dry, normal turgor, no rashes or lesions noted Laboratory Results - last 24 hr 06/06/20 06/10/20 06/11/20 18:24 12:25 01:03 WBC 5.9 RBC 3.05 L Hgb 8.9 L Hct 26.4 L MCV 86.3 MCH 29.1 MCHC 33.7 RDW 17.0 H Plt Count 213 MPV 7.9 PT with INR INR Fibrinogen Blood Type B NEGATIVE B NEGATIVE Antibody Screen Negative Negative Crossmatch See Detail See Detail 06/11/20 06/11/20 01:03 01:03 WBC RBC Hgb Hct MCV MCH MCHC RDW Plt Count MPV PT with INR 37.50 H INR 3.14 H Fibrinogen > 500.0 H Blood Type Antibody Screen Crossmatch Active Medications Generic Name Dose Route Start Last Admin Trade Name Freq PRN Reason Stop Dose Admin Acetaminophen 1,000 mg 06/07/20 17:47 06/11/20 08:40 Tylenol - PO 1,000 mg Q8H PRN Administration PAIN LEVEL 1-5 Carvedilol 25 mg 06/07/20 22:00 06/11/20 09:19 Coreg - PO 25 mg BID MALINA Administration Febuxostat 40 mg 06/08/20 10:00 06/11/20 09:21 Uloric - PO 40 mg DAILY MALINA Administration Furosemide 40 mg 06/08/20 10:00 06/11/20 09:20 Lasix - PO 40 mg DAILY MALINA Administration Cefazolin Sodium 1 gm/ 50 mls @ 100 mls/hr 06/10/20 10:00 06/11/20 09:19 Dextrose IVPB 100 mls/hr Q8H-IV MALINA Administration Isosorbide Mononitrate 30 mg 06/08/20 10:00 06/11/20 09:20 Imdur - PO 30 mg DAILY MALINA Administration Mirtazapine 7.5 mg 06/07/20 22:00 06/10/20 22:36 Remeron - PO Not Given HS MALINA Polyethylene Glycol 17 gm 06/08/20 10:00 06/11/20 09:25 Miralax (For Daily Use) - PO 17 gm DAILY MALINA Administration Rosuvastatin Calcium 10 mg 06/07/20 22:00 06/10/20 22:36 Crestor - PO Not Given HS MALINA Senna/Docusate Sodium 2 tablet 06/07/20 17:47 Pericolace - PO DAILY PRN CONSTIPATION Warfarin Sodium 1 mg 06/09/20 18:00 06/09/20 17:47 Coumadin - PO 1 mg DAILY@1800 MALINA Administration ASSESSMENT/PLAN: 89-year-old female past medical history of dementia, HTN, CAD, DVT, CKD, Gout, GERD, CHF with PPM, PVD, admitted to the ICU after a femoropopliteal bypass due to an ischemic right foot. #Ischemic right foot; POD # 5 s/p right femoralpopliteal bypass Vascular on board; cont daily wound care Pain control -OOB w/ assistance/PT -Pulses remain doppler-able -RLE US shows R femoral and popliteal DVT however patient had DVT back in april will get records to see if any change occurred and re-assess her AC status #Acute blood loss anemia, postoperative; Hgb 8.9 today 2/p 1 PRBC yesterday -total will be 4U this admission -trend CBCs; maintain Hgb >8 #GENA on CKD unknown stage Nephrology consult appreciated Renal ultrasound shows mildly atrophic right kidney, left kidney could not be visualized due to excessive bowel gas within the left upper quadrant Follow-up urine studies Avoid hypotension Cont PO Lasix 40 mg -Pt. has significant LE edema without Lung involvement--> likely R. sided heart failure Will hold Coreg today given borderline BP/HR #CAD; Cont home med: Crestor 10 HS #Hypertension; c/w Coreg and imdur #CHF exacerbation -Cont Lasix 40 mg PO #History of gout; Cont home med: Febuxostat 40 QD #FEN -PO hydration -monitor electrolytes and replete PRN -Sodium controlled diet Problem List - Problems (1) CAD (coronary artery disease) Code(s): I25.10 - ATHSCL HEART DISEASE OF [place] CORONARY ARTERY W/O ANG PCTRS (2) Peripheral artery disease Code(s): I73.9 - PERIPHERAL VASCULAR DISEASE, UNSPECIFIED Visit type - Emergency Visit Emergency Visit: Yes ED Registration Date: 06/06/20 Care time: The patient presented to the Emergency Department on the above date and was hospitalized for further evaluation of their emergent condition. - New Patient This patient is new to me today: Yes Date on this admission: 06/11/20 - Critical Care Critical Care patient: No - Medication Review Med list reviewed for High Risk Meds patients 65 and older: Yes ATTENDING PHYSICIAN STATEMENT I saw and evaluated the patient. I reviewed the resident's note and discussed the case with the resident. I agree with the resident's findings and plan as documented. SUBJECTIVE: OBJECTIVE: ASSESSMENT AND PLAN:
--- NOTE | 2020-06-11 16:10 | PN ---
Progress Note (short form) - Note Progress Note: POD 5, s/p right lower extremity femoral popliteal bypass with PTFE graft c/b acute blood loss anemia, s/p ?3 units pRBCs Surgery: Pt seen and examined. Continues to have significant back pain from being in bed. Tolerating PO, poor appetite, has been oob to chair. Szymanski in place. No issues overnight. Denies cp/sob, n/v/d. Vital Signs Temp 98 F 06/11/20 12:02 Pulse 58 L 06/11/20 16:00 Resp 18 06/11/20 16:00 BP 164/57 L 06/11/20 16:01 Pulse Ox 98 06/11/20 07:50 Intake & Output 06/10/20 06/11/20 06/11/20 23:59 11:59 23:59 Intake Total 550 500 Output Total 850 600 400 Balance -850 -50 100 Weight 182 lb 15.739 oz Intake: IVPB 100 200 Oral 100 300 Packed Cells 350 Output: Urine 850 600 400 Szymanski 850 600 400 Other: Voiding Method Indwelling Catheter Indwelling Catheter Bowel Movement No No No Weight Measurement Method Built in [facility] GEN: Awake, Alert, following commands RLE: R groin incision c/d/i with carl/suture. No erythema or drainage. ++ ecchymosis extending onto pubic region, + ttp. Painted with betadine and re- dressed with 4x4s and tegaderm. Right leg incision (distal thigh/calf) x2 c/d/i with carl, painted with betadine and re-dressed with 4x4's and tegaderms. Thigh/calf soft. No erythema or drainage noted, no ecchymosis present. Right foot warm and with biphasic dp pulse appreciated with doppler. Multiple superficial excoriations circumferentially, over distal calf, no erythema or drainage. Large fluid filled blister at heel, no erythema or drainage, allevyn in place. Vasc: biphasic signal r dp/pt CBC, BMP 06/11/20 01:03 06/10/20 08:07 A/P: 89 y/o F w/ PMHx dementia, HTN, CAD, DVTs, CKD, GERD, constipation, cardiac pacemaker (on coumadin), HLD, PVD, & Heart failure, found to have ischemic right foot during evaluation at outside office, , now s/p right lower extremity femoral popliteal bypass with PTFE graft on 06/06 c/b acute blood loss anemia, s/p ?3 units pRBCs Incisions stable Biphasic signal over R dp/pt Stable groin ecchymosis Labs/vitals noted received 1 unit pRBCs last night, responded appropriately found to have rle dvt per records pt was initiated on Coumadin in April due to le dvt. awaiting prior duplex for to assess for propagation of clot. Pt awaiting transfer to floor Transfuse prn Continue local wound care to rle Continue Coumadin per medical team, monitor INR CBC/BMP INR in the am OOB with assistance/PT Diet as tolerated If okay with renal, may remove jose antonio D/w Dr. Em
[2020-06-11] MEDS: MIRTAZAPINE 15 MG TABLET (FP) PO SCH (21:32)
[2020-06-11] MEDS: ROSUVASTATIN CA 10 MG TABLET (FP) PO SCH (21:32)
[2020-06-12] MEDS: ACETAMINOPHEN 500 MG TABLET (FP) PO PRN ×3 (01:31→21:59)
[2020-06-12] MEDS ORDERED: ceFAZolin SODIUM 1 GM VIAL ONE ×3 (03:28→17:11)
[2020-06-12] MEDS ORDERED: DEXTROSE 5%-WATER - 50 ML IVPB ONE ×3 (03:28→17:11)
[2020-06-12] MEDS: CEFAZOLIN 1 GM in DEXTROSE 5%-WATER - 50 ML IVPB SCH ×3 (03:36→17:13)
[2020-06-12] MEDS ORDERED: MORPHINE SULFATE 2 MG/ML VIAL IVPUSH ONE (06:24)
[2020-06-12 08:05] LABS: BASO % 1.1 % (0-2.0); EOS % 2.6 % (0-4.5); HEMATOCRIT 29.1 % (32.4-45.2); HEMOGLOBIN 9.8 GM/dL (10.7-15.3); LYMPH % 13.4 % (8-40); MCH 28.6 pg (25.7-33.7); MCHC 33.6 g/dl (32.0-36.0); MEAN CELL VOLUME 85.2 fl (80-96); MEAN PLT VOLUME 7.5 fl (7.5-11.1); MONO % 7.9 % (3.8-10.2); PLATELET COUNT 277 K/MM3 (134-434); RBC 3.42 M/mm3 (3.60-5.2); RDW 17.1 % (11.6-15.6); WHITE BLOOD COUNT 6.5 K/mm3 (4.0-10.0)
[2020-06-12] MEDS ORDERED: BISACODYL 5 MG TABLET.DR (FP) PO PRN (08:25)
[2020-06-12 08:26] LABS: CHLORIDE 104 mmol/L (98-107); POTASSIUM 3.6 mmol/L (3.5-5.1); SODIUM 138 mmol/L (136-145)
[2020-06-12 08:42] LABS: ALBUMIN 2.3 g/dl (3.4-5.0); ALK PHOS 138 U/L (45-117); ANION GAP 8 MMOL/L (8-16); BILIRUBIN,TOTAL 0.9 mg/dL (0.2-1); BLOOD UREA NITROGEN 35.5 mg/dL (7-18); CALCIUM 8.8 mg/dL (8.5-10.1); CO2 27 mmol/L (21-32); CREATININE 1.6 mg/dL (0.55-1.3); GLUCOSE,RANDOM 98 mg/dL (74-106); MAGNESIUM 1.9 mg/dL (1.8-2.4); PHOSPHOROUS 2.7 mg/dL (2.5-4.9); SGOT/AST 19 U/L (15-37); TOT PROT 5.6 g/dl (6.4-8.2)
[2020-06-12 08:43] LABS: INR 3.43 (0.83-1.09); SGPT/ALT < 6 U/L (13-61)
[2020-06-12 08:46] LABS: ACTIVATED PTT 33.1 SECONDS (25.2-36.5)
[2020-06-12 10:04] LABS: ANISOCYTOSIS 1+; MACROCYTOSIS 0; PLATELET ESTIMATE NORMAL
[2020-06-12] MEDS ORDERED: PT OWN MED DRAWER 7, Y5N ONE (10:07)
[2020-06-12] MEDS: FUROSEMIDE 40 MG TABLET (FP) PO SCH (10:13)
[2020-06-12] MEDS: ISOSORBIDE MONONITRATE 30 MG TAB.SR.24H (FP) PO SCH (10:13)
[2020-06-12] MEDS: CARVEDILOL 25 MG TABLET (FP) PO SCH ×2 (10:13→21:58)
[2020-06-12] MEDS: FEBUXOSTAT 40 MG TAB PO SCH (10:14)
[2020-06-12] MEDS: POLYETHYLENE GLYCOL 3350 119 GM BTL PO SCH (10:14)
--- NOTE | 2020-06-12 11:15 | PN ---
Teaching Attending Note Name of Resident: Merary Armijo ATTENDING PHYSICIAN STATEMENT I saw and evaluated the patient. I reviewed the resident's note and discussed the case with the resident. I agree with the resident's findings and plan as documented. SUBJECTIVE: OBJECTIVE: ASSESSMENT AND PLAN: 89-year-old female with a past medical history notable for dementia, HTN, CAD, DVT, CKD, Gout, GERD, CHF with PPM, PVD, who was admitted to the ICU after a femoropopliteal bypass due to an ischemic right foot. Plan #Ischemic right foot; s/p right femoralpopliteal bypass on June 06 Vascular on board; continue daily wound care #Acute blood loss anemia, postoperative; -total will be 4U PRBC this admission -monitor CBC #GENA on CKD Nephrology consult appreciated Continue PO Lasix 40 mg #CAD; Stable #CHF exacerbation -Cont Lasix 40 mg PO
--- NOTE | 2020-06-12 12:33 | CONSULT ---
Consultation: REQUESTING PROVIDER: Dr. Shipley CONSULT REQUEST: We have been asked to medically evaluate this patient for DVT, supratherapeutic INR. HISTORY OF PRESENT ILLNESS: Patient is an 89 year old female with past medical history of Dementia, HTn, CAD, DVTs, CKD, GERD, constipation, cardiac pacemaker, HLD, PVD, CHF, was admitted a week ago after she underwent right lower extremity femoral popliteal bypass with PTFE graft. History is limited as patient has baseline dementia. History mostly noted from patient's chart. Patient was found to have ischemic right foot during her visit to her vascular surgeon, and she urgently underwent fem pop bypass. Of note, patient has history of RLE DVT diagnosed last month where she was started on coumadin. On post-op day 3, patient was resumed at a lower dose of Coumadin. The next day, her INR was noted to be slightly elevated and coumadin was held. At that time, RLE Us was also done as patient's right leg was swollen. It revealed DVT involving the right femoral and popliteal vein, as well as deep femoral vein. Primary team attempting to get the previous RLE US done last month. INR continues to be slightly elevated. No signs of active bleeding. PMH: Dementia, htn, CAD, DVTs, CKD, Gerd, Constipation, HLD, PVD, heart failure PSH: cataract surgery Allergies: NKDA PCP: Dr. Hirsch Vascular: Dr. Em REVIEW OF SYSTEMS: CONSTITUTIONAL: Absent: fever, chills, diaphoresis, generalized weakness, malaise, loss of appetite, weight change HEENT: Absent: rhinorrhea, nasal congestion, throat pain, throat swelling, difficulty swallowing, mouth swelling, ear pain, eye pain, visual changes CARDIOVASCULAR: Absent: chest pain, syncope, palpitations, irregular heart rate, lightheadedness, peripheral edema RESPIRATORY: Absent: cough, shortness of breath, dyspnea with exertion, orthopnea, wheezing, stridor, hemoptysis GASTROINTESTINAL: Absent: abdominal pain, abdominal distension, nausea, vomiting, diarrhea, constipation, melena, hematochezia GENITOURINARY: Absent: dysuria, frequency, urgency, hesitancy, hematuria, flank pain, genital pain MUSCULOSKELETAL: back pain, right leg pain Absent: myalgia, arthralgia, joint swelling, neck pain SKIN: Absent: rash, itching, pallor HEMATOLOGIC/IMMUNOLOGIC: Absent: easy bleeding, easy bruising, lymphadenopathy, frequent infections ENDOCRINE: Absent: unexplained weight gain, unexplained weight loss, heat intolerance, cold intolerance NEUROLOGIC: Absent: headache, focal weakness or paresthesias, dizziness, unsteady gait, seizure, mental status changes, bladder or bowel incontinence PSYCHIATRIC: Absent: anxiety, depression, suicidal or homicidal ideation, hallucinations. PHYSICAL EXAMINATION Vital Signs - 24 hr 06/11/20 06/11/20 06/11/20 14:02 14:07 16:00 Temperature Pulse Rate 52 L 58 L Respiratory 18 18 Rate Blood Pressure 159/53 L O2 Sat by Pulse Oximetry (%) 06/11/20 06/11/20 06/11/20 16:01 16:17 20:00 Temperature 98.6 F 98.2 F Pulse Rate 60 Respiratory 23 H Rate Blood Pressure 164/57 L 178/56 H O2 Sat by Pulse 96 Oximetry (%) 06/11/20 06/12/20 06/12/20 21:00 00:15 02:00 Temperature 98.1 F 97.8 F Pulse Rate 58 L 61 Respiratory 20 20 Rate Blood Pressure 159/69 151/72 O2 Sat by Pulse 96 94 L 97 Oximetry (%) 06/12/20 06:00 Temperature 98.1 F Pulse Rate 60 Respiratory 20 Rate Blood Pressure 181/74 H O2 Sat by Pulse Oximetry (%) GENERAL: Awake, alert, and in mild distress due to discomfort NECK: Normal range of motion, supple LUNGS: Decreased breath sounds bilateral bases HEART: Regular rate and rhythm, normal S1 and S2 ABDOMEN: Soft, nontender, not distended, normoactive bowel sounds. LOWER EXTREMITIES: 2+ radial pulses, warm, well-perfused, + RLE edema. Bandaged RLE c/d/i SKIN: Warm, dry, normal turgor Laboratory Results - last 24 hr 06/12/20 06/12/20 06/12/20 06:35 06:35 06:35 WBC 6.5 RBC 3.42 L Hgb 9.8 L Hct 29.1 L MCV 85.2 MCH 28.6 MCHC 33.6 RDW 17.1 H Plt Count 277 D MPV 7.5 Absolute Neuts (auto) 4.8 Neutrophils % 75.0 Neutrophils % (Manual) 78.0 Band Neutrophils % 0.0 Lymphocytes % 13.4 D Lymphocytes % (Manual) 16.0 Monocytes % 7.9 Monocytes % (Manual) 5 Eosinophils % 2.6 Eosinophils % (Manual) 1.0 Basophils % 1.1 Basophils % (Manual) 0.0 Myelocytes % (Man) 0 Promyelocytes % (Man) 0 Blast Cells % (Manual) 0 Nucleated RBC % 0 Metamyelocytes 0 Hypochromia 0 Platelet Estimate Normal Polychromasia 1+ Poikilocytosis 0 Anisocytosis 1+ Microcytosis 1+ Macrocytosis 0 PT with INR 41.00 H INR 3.43 H PTT (Actin FS) 33.1 Sodium 138 Potassium 3.6 Chloride 104 Carbon Dioxide 27 Anion Gap 8 BUN 35.5 H Creatinine 1.6 H Est GFR (CKD-EPI)AfAm 32.77 Est GFR (CKD-EPI)NonAf 28.27 Random Glucose 98 Calcium 8.8 Phosphorus 2.7 Magnesium 1.9 Total Bilirubin 0.9 AST 19 ALT < 6 L Alkaline Phosphatase 138 H Total Protein 5.6 L Albumin 2.3 L Active Medications Generic Name Dose Route Start Last Admin Trade Name Freq PRN Reason Stop Dose Admin Acetaminophen 1,000 mg 06/07/20 17:47 06/12/20 12:01 Tylenol - PO 1,000 mg Q8H PRN Administration PAIN LEVEL 1-5 Carvedilol 25 mg 06/07/20 22:00 06/12/20 10:13 Coreg - PO 25 mg BID MALINA Administration Febuxostat 40 mg 06/08/20 10:00 06/12/20 10:14 Uloric - PO 40 mg DAILY MALINA Administration Furosemide 40 mg 06/08/20 10:00 06/12/20 10:13 Lasix - PO 40 mg DAILY MALINA Administration Cefazolin Sodium 1 gm/ 50 mls @ 100 mls/hr 06/10/20 10:00 06/12/20 10:13 Dextrose IVPB 100 mls/hr Q8H-IV MALINA Administration Isosorbide Mononitrate 30 mg 06/08/20 10:00 06/12/20 10:13 Imdur - PO 30 mg DAILY MALINA Administration Mirtazapine 7.5 mg 06/07/20 22:00 06/11/20 21:32 Remeron - PO 7.5 mg HS MALINA Administration Polyethylene Glycol 17 gm 06/08/20 10:00 06/12/20 10:14 Miralax (For Daily Use) - PO 17 gm DAILY MALINA Administration Rosuvastatin Calcium 10 mg 06/07/20 22:00 06/11/20 21:32 Crestor - PO 10 mg HS MALINA Administration Senna/Docusate Sodium 2 tablet 06/07/20 17:47 Pericolace - PO DAILY PRN CONSTIPATION Warfarin Sodium 1 mg 06/09/20 18:00 06/09/20 17:47 Coumadin - PO 1 mg DAILY@1800 MALINA Administration ASSESSMENT/PLAN: Patient is an 89 year old female with past medical history of Dementia, HTn, CAD, DVTs, CKD, GERD, constipation, cardiac pacemaker, HLD, PVD, CHF, was admitted a week ago after she underwent right lower extremity femoral popliteal bypass with PTFE graft. We have been asked to medically evaluate this patient for DVT, supratherapeutic INR. #DVT #Supratherapeutic INR -RLE US : DVT involving the right femoral and popliteal vein, as well as deep femoral vein. -High risk for DVT within 1st month of diagnosis, unlikely propagation if compliant with coumadin and INR levels remained therapeutic -INR likely elevated now from decreased nourishment/ albumin, -no active signs of bleeding, continue monitoring INR for now -no need to give Vit K at this time -resume coumadin when INR is therapeutic Dispo: We will continue to follow the patient. Thank you for this consultative opportunity. Visit type - Medication Review Med list reviewed for High Risk Meds patients 65 and older: Yes - Emergency Visit Emergency Visit: Yes ED Registration Date: 06/06/20 Care time: The patient presented to the Emergency Department on the above date and was hospitalized for further evaluation of their emergent condition. - New Patient This patient is new to me today: Yes Date on this admission: 06/12/20 - Critical Care Critical Care patient: No ATTENDING PHYSICIAN STATEMENT I saw and evaluated the patient. I reviewed the resident's note and discussed the case with the resident. I agree with the resident's findings and plan as documented. SUBJECTIVE: OBJECTIVE: ASSESSMENT AND PLAN:
--- NOTE | 2020-06-12 13:22 | PN ---
Teaching Attending Note Name of Resident: Liseth Lamb ATTENDING PHYSICIAN STATEMENT I saw and evaluated the patient. I reviewed the resident's note and discussed the case with the resident. I agree with the resident's findings and plan as documented. 89yF with Dementia, CAD, ppm, DVT (april? On coumadin) CKD, PVD, CHF with right femoral popliteal bypass on 06/06 2/2 ischemic right foot. Course c/b acute blood loss anemia requiring 3 units PRBC and CHF exacerbation . Last Coumadin dose on 06/09 (1mg) . Hb 9.8 today, plts 277. Hematology consulted for elevated INR. Agree to continue to hold warfarin 1mg. Goal INR 2-3 for setting of DVT. No need for urgent reversal 2/2 no life threatening bleeding at this time. . Patient is also at high risk for acute DVT due to current clinical status and recent DVT 1 month ago. Patient also with low albumin which may be contributing to elevated INR.
--- NOTE | 2020-06-12 13:31 | PN ---
Physical Exam: SUBJECTIVE: Patient seen and examined at bedside; no acute events overnight patient states that she still is having back pain from sleeping in the bed and right leg pain; she denies any CP/SOB/NV OBJECTIVE: Vital Signs Period Temp Pulse Resp BP Sys/Patel Pulse Ox Last 24 Hr 97.8 F-98.6 F 52-61 18-23 151-181/53-74 94-97 GENERAL: The patient is awake, alert, and fully oriented, in no acute distress. EYES: PEERLA: EOMI no scleral icterus NECK: no JVD: no lymphadenopathy LUNGS:decreased breath sounds at the bases b/l HEART: Regular rate and rhythm, S1, S2 without murmur, rub or gallop. ABDOMEN: Soft,NT ND +BS in all 4 quadrants EXTREMITIES: 2+ radial pulses, warm, well-perfused, + RLE edema. Bandaged RLE c/d/i PSYCH: Normal mood, normal affect. SKIN: Warm, dry, normal turgor, no rashes or lesions noted Laboratory Results - last 24 hr 06/12/20 06/12/20 06/12/20 06:35 06:35 06:35 WBC 6.5 RBC 3.42 L Hgb 9.8 L Hct 29.1 L MCV 85.2 MCH 28.6 MCHC 33.6 RDW 17.1 H Plt Count 277 D MPV 7.5 Absolute Neuts (auto) 4.8 Neutrophils % 75.0 Neutrophils % (Manual) 78.0 Band Neutrophils % 0.0 Lymphocytes % 13.4 D Lymphocytes % (Manual) 16.0 Monocytes % 7.9 Monocytes % (Manual) 5 Eosinophils % 2.6 Eosinophils % (Manual) 1.0 Basophils % 1.1 Basophils % (Manual) 0.0 Myelocytes % (Man) 0 Promyelocytes % (Man) 0 Blast Cells % (Manual) 0 Nucleated RBC % 0 Metamyelocytes 0 Hypochromia 0 Platelet Estimate Normal Polychromasia 1+ Poikilocytosis 0 Anisocytosis 1+ Microcytosis 1+ Macrocytosis 0 PT with INR 41.00 H INR 3.43 H PTT (Actin FS) 33.1 Sodium 138 Potassium 3.6 Chloride 104 Carbon Dioxide 27 Anion Gap 8 BUN 35.5 H Creatinine 1.6 H Est GFR (CKD-EPI)AfAm 32.77 Est GFR (CKD-EPI)NonAf 28.27 Random Glucose 98 Calcium 8.8 Phosphorus 2.7 Magnesium 1.9 Total Bilirubin 0.9 AST 19 ALT < 6 L Alkaline Phosphatase 138 H Total Protein 5.6 L Albumin 2.3 L Active Medications Generic Name Dose Route Start Last Admin Trade Name Freq PRN Reason Stop Dose Admin Acetaminophen 1,000 mg 06/07/20 17:47 06/12/20 12:01 Tylenol - PO 1,000 mg Q8H PRN Administration PAIN LEVEL 1-5 Carvedilol 25 mg 06/07/20 22:00 06/12/20 10:13 Coreg - PO 25 mg BID MALINA Administration Febuxostat 40 mg 06/08/20 10:00 06/12/20 10:14 Uloric - PO 40 mg DAILY MALINA Administration Furosemide 40 mg 06/08/20 10:00 06/12/20 10:13 Lasix - PO 40 mg DAILY MALINA Administration Cefazolin Sodium 1 gm/ 50 mls @ 100 mls/hr 06/10/20 10:00 06/12/20 10:13 Dextrose IVPB 100 mls/hr Q8H-IV MALINA Administration Isosorbide Mononitrate 30 mg 06/08/20 10:00 06/12/20 10:13 Imdur - PO 30 mg DAILY MALINA Administration Mirtazapine 7.5 mg 06/07/20 22:00 06/11/20 21:32 Remeron - PO 7.5 mg HS MALINA Administration Polyethylene Glycol 17 gm 06/08/20 10:00 06/12/20 10:14 Miralax (For Daily Use) - PO 17 gm DAILY MALINA Administration Rosuvastatin Calcium 10 mg 06/07/20 22:00 06/11/20 21:32 Crestor - PO 10 mg HS MALINA Administration Senna/Docusate Sodium 2 tablet 06/07/20 17:47 Pericolace - PO DAILY PRN CONSTIPATION Warfarin Sodium 1 mg 06/09/20 18:00 06/09/20 17:47 Coumadin - PO 1 mg DAILY@1800 MALINA Administration ASSESSMENT/PLAN: 89-year-old female past medical history of dementia, HTN, CAD, DVT, CKD, Gout, GERD, CHF with PPM, PVD, admitted to the ICU after a femoropopliteal bypass due to an ischemic right foot. #Ischemic right foot; POD # 6 s/p right femoralpopliteal bypass Vascular on board; cont daily wound care Pain control -OOB w/ assistance/PT -Pulses remain doppler-able -RLE US shows R femoral and popliteal DVT however patient had DVT back in april; in process of getting records -heme onc consulted; less likely propagation of DVT from one month ago given coumadin compliance and INR levels; will continue to hold coumadin until INR is between 2-3 #Acute blood loss anemia, postoperative; Hgb 9.8 today -total will be 4U this admission -trend CBCs; maintain Hgb >8 #GENA on CKD unknown stage Nephrology consult appreciated Renal ultrasound shows mildly atrophic right kidney, left kidney could not be visualized due to excessive bowel gas within the left upper quadrant Cont PO Lasix 40 mg -Pt. has significant LE edema without Lung involvement--> likely R. sided heart failure #CAD; Cont home med: Crestor 10 HS #Hypertension; c/w Coreg and imdur #CHF exacerbation -Cont Lasix 40 mg PO #History of gout; Cont home med: Febuxostat 40 QD #FEN -PO hydration -monitor electrolytes and replete PRN -Sodium controlled diet dispo: likely dc tomorrow back to SNF Problem List - Problems (1) CAD (coronary artery disease) Code(s): I25.10 - ATHSCL HEART DISEASE OF [place] CORONARY ARTERY W/O ANG PCTRS (2) Peripheral artery disease Code(s): I73.9 - PERIPHERAL VASCULAR DISEASE, UNSPECIFIED Visit type - Emergency Visit Emergency Visit: Yes ED Registration Date: 06/06/20 Care time: The patient presented to the Emergency Department on the above date and was hospitalized for further evaluation of their emergent condition. - New Patient This patient is new to me today: No - Critical Care Critical Care patient: No - Medication Review Med list reviewed for High Risk Meds patients 65 and older: Yes ATTENDING PHYSICIAN STATEMENT I saw and evaluated the patient. I reviewed the resident's note and discussed the case with the resident. I agree with the resident's findings and plan as documented. SUBJECTIVE: OBJECTIVE: ASSESSMENT AND PLAN:
--- NOTE | 2020-06-12 14:24 | PN ---
Progress Note, Physician History of Present Illness: Pt seen and examined at bedside. She is awake and appears comfortable. She does get back pain at times. - Current Medication List Current Medications: Active Medications Acetaminophen (Tylenol -) 1,000 mg PO Q8H PRN PRN Reason: PAIN LEVEL 1-5 Last Admin: 06/12/20 12:01 Dose: 1,000 mg Documented by: Carvedilol (Coreg -) 25 mg PO BID [facility] Last Admin: 06/12/20 10:13 Dose: 25 mg Documented by: Febuxostat (Uloric -) 40 mg PO DAILY [facility] Last Admin: 06/12/20 10:14 Dose: 40 mg Documented by: Furosemide (Lasix -) 40 mg PO DAILY [facility] Last Admin: 06/12/20 10:13 Dose: 40 mg Documented by: Cefazolin Sodium 1 gm/ (Dextrose) 50 mls @ 100 mls/hr IVPB Q8H-IV [facility] Last Admin: 06/12/20 10:13 Dose: 100 mls/hr Documented by: Isosorbide Mononitrate (Imdur -) 30 mg PO DAILY [facility] Last Admin: 06/12/20 10:13 Dose: 30 mg Documented by: Mirtazapine (Remeron -) 7.5 mg PO HS [facility] Last Admin: 06/11/20 21:32 Dose: 7.5 mg Documented by: Polyethylene Glycol (Miralax (For Daily Use) -) 17 gm PO DAILY [facility] Last Admin: 06/12/20 10:14 Dose: 17 gm Documented by: Rosuvastatin Calcium (Crestor -) 10 mg PO HS [facility] Last Admin: 06/11/20 21:32 Dose: 10 mg Documented by: Senna/Docusate Sodium (Pericolace -) 2 tablet PO DAILY PRN PRN Reason: CONSTIPATION Warfarin Sodium (Coumadin -) 1 mg PO DAILY@1800 [facility] Last Admin: 06/09/20 17:47 Dose: 1 mg Documented by: - Objective Vital Signs: Vital Signs Temperature 98.2 F 06/12/20 10:00 Pulse Rate 59 L 06/12/20 10:00 Respiratory Rate 22 H 06/12/20 10:00 Blood Pressure 189/78 H 06/12/20 10:00 O2 Sat by Pulse Oximetry (%) 95 06/12/20 10:00 Constitutional: Yes: Calm Eyes: Yes: Conjunctiva Clear HENT: Yes: Atraumatic Cardiovascular: Yes: S1, S2 Respiratory: Yes: CTA Bilaterally Gastrointestinal: Yes: Soft Genitourinary: Yes: Szymanski Present Musculoskeletal: Yes: WNL Edema: Yes Edema: RLE: 1+ Neurological: Yes: Oriented Labs: CBC, BMP 06/12/20 06:35 06/12/20 06:35 INR, PTT INR 3.43 (0.83-1.09) H 06/12/20 06:35 Fibrinogen > 500.0 mg/dL (238-498) H 06/11/20 01:03 Problem List - Problems (1) CKD (chronic kidney disease) Code(s): N18.9 - CHRONIC KIDNEY DISEASE, UNSPECIFIED (2) CAD (coronary artery disease) Code(s): I25.10 - ATHSCL HEART DISEASE OF [place] CORONARY ARTERY W/O ANG PCTRS (3) Peripheral artery disease Code(s): I73.9 - PERIPHERAL VASCULAR DISEASE, UNSPECIFIED (4) CHF (congestive heart failure) Code(s): I50.9 - HEART FAILURE, UNSPECIFIED (5) Ischemic foot Code(s): I99.8 - OTHER DISORDER OF CIRCULATORY SYSTEM Assessment/Plan Current Medications Generic Name Dose Route Start Last Admin Trade Name Freq PRN Reason Stop Dose Admin Acetaminophen 1,000 mg 06/07/20 17:47 06/12/20 12:01 Tylenol - PO 1,000 mg Q8H PRN Administration PAIN LEVEL 1-5 Carvedilol 25 mg 06/07/20 22:00 06/12/20 10:13 Coreg - PO 25 mg BID [facility] Administration Febuxostat 40 mg 06/08/20 10:00 06/12/20 10:14 Uloric - PO 40 mg DAILY [facility] Administration Furosemide 40 mg 06/08/20 10:00 06/12/20 10:13 Lasix - PO 40 mg DAILY [facility] Administration Cefazolin Sodium 1 gm/ 50 mls @ 100 mls/hr 06/10/20 10:00 06/12/20 10:13 Dextrose IVPB 100 mls/hr Q8H-IV [facility] Administration Isosorbide Mononitrate 30 mg 06/08/20 10:00 06/12/20 10:13 Imdur - PO 30 mg DAILY [facility] Administration Mirtazapine 7.5 mg 06/07/20 22:00 06/11/20 21:32 Remeron - PO 7.5 mg HS [facility] Administration Polyethylene Glycol 17 gm 06/08/20 10:00 06/12/20 10:14 Miralax (For Daily Use) - PO 17 gm DAILY [facility] Administration Rosuvastatin Calcium 10 mg 06/07/20 22:00 06/11/20 21:32 Crestor - PO 10 mg HS [facility] Administration Senna/Docusate Sodium 2 tablet 06/07/20 17:47 Pericolace - PO DAILY PRN CONSTIPATION Warfarin Sodium 1 mg 06/09/20 18:00 06/09/20 17:47 Coumadin - PO 1 mg DAILY@1800 [facility] Administration Laboratory Tests 06/08/20 17:00 Urine Protein 1+ H Urine Blood 3+ H Impression 1. CKD 2. PVD 3. chf 4. hld 5. cad 6. dvt 7. s/p fem pop bypass 8. atrophic right kidney Plan - renal function stabilizing - cont lasix - vascular follow up - avoid nsaids - monitor edema
[2020-06-12] MEDS: ROSUVASTATIN CA 10 MG TABLET (FP) PO SCH (21:58)
[2020-06-12] MEDS: MIRTAZAPINE 15 MG TABLET (FP) PO SCH (21:59)
[2020-06-12 23:13] VITALS: BMI 31.2
[2020-06-13] MEDS ORDERED: ceFAZolin SODIUM 1 GM VIAL ONE ×2 (01:51→09:06)
[2020-06-13] MEDS ORDERED: DEXTROSE 5%-WATER - 50 ML IVPB ONE ×2 (01:51→09:06)
[2020-06-13] MEDS: CEFAZOLIN 1 GM in DEXTROSE 5%-WATER - 50 ML IVPB SCH ×2 (03:05→09:33)
[2020-06-13] MEDS: ACETAMINOPHEN 500 MG TABLET (FP) PO PRN (03:58)
[2020-06-13 07:26] LABS: INR 3.82 (0.83-1.09); PROTHROMBIN TIME (PATIENT) 45.7 SEC (9.7-13.0)
[2020-06-13 07:29] LABS: ACTIVATED PTT 24.3 SECONDS (25.2-36.5)
[2020-06-13 07:35] LABS: BASO % 1.2 % (0-2.0); HEMATOCRIT 26.8 % (32.4-45.2); LYMPH % 13.4 % (8-40); MCH 28.9 pg (25.7-33.7); MCHC 33.7 g/dl (32.0-36.0); MEAN CELL VOLUME 85.9 fl (80-96); MEAN PLT VOLUME 7.8 fl (7.5-11.1); MONO % 7.8 % (3.8-10.2); NEUT % 75.6 % (42.8-82.8); PLATELET COUNT 245 K/MM3 (134-434); RBC 3.12 M/mm3 (3.60-5.2); RDW 16.8 % (11.6-15.6); WHITE BLOOD COUNT 6.4 K/mm3 (4.0-10.0)
[2020-06-13 08:00] LABS: CHLORIDE 104 mmol/L (98-107); POTASSIUM 3.4 mmol/L (3.5-5.1); SODIUM 140 mmol/L (136-145)
[2020-06-13 08:12] LABS: ALBUMIN 2.2 g/dl (3.4-5.0); ALK PHOS 124 U/L (45-117); ANION GAP 10 MMOL/L (8-16); BILIRUBIN,TOTAL 1.3 mg/dL (0.2-1); CALCIUM 8.4 mg/dL (8.5-10.1); CO2 26 mmol/L (21-32); CREATININE 1.4 mg/dL (0.55-1.3); GLUCOSE,RANDOM 78 mg/dL (74-106); MAGNESIUM 1.7 mg/dL (1.8-2.4); PHOSPHOROUS 2.7 mg/dL (2.5-4.9); SGOT/AST 16 U/L (15-37); TOT PROT 5.2 g/dl (6.4-8.2)
[2020-06-13 08:19] LABS: SGPT/ALT < 6 U/L (13-61)
[2020-06-13 08:30] VITALS: BP 154/69; PULSE 50; TEMP 98
[2020-06-13] MEDS: CARVEDILOL 25 MG TABLET (FP) PO SCH (09:32)
[2020-06-13] MEDS: FUROSEMIDE 40 MG TABLET (FP) PO SCH (09:32)
[2020-06-13] MEDS: ISOSORBIDE MONONITRATE 30 MG TAB.SR.24H (FP) PO SCH (09:32)
[2020-06-13] MEDS: POLYETHYLENE GLYCOL 3350 119 GM BTL PO SCH (09:32)
[2020-06-13] MEDS: FEBUXOSTAT 40 MG TAB PO SCH (09:33)
[2020-06-13] MEDS ORDERED: POTASSIUM CHLORIDE ORAL LIQUID 20 MEQ/15 ML PO ONE (11:43)
[2020-06-13] MEDS ORDERED: MAGNESIUM SULF 50% (8.12 MEQ/2 ML-1 GM VIAL) IVPB ONE (11:44)
[2020-06-13] MEDS ORDERED: MAGNESIUM 1GM/D5W - 1 GM/100 ML IVPB IVPB ONE (12:00)
--- NOTE | 2020-06-13 12:47 | DS ---
Physical Exam: SUBJECTIVE: Patient seen and examined this AM. No new complaints. OBJECTIVE: Vital Signs Period Temp Pulse Resp BP Sys/Patel Pulse Ox Last 24 Hr 98 F-98.2 F 50-58 20-20 131-180/60-80 9-96 PHYSICAL EXAM GENERAL: A&Ox3, NAD EYES: EOMI NECK: Supple LUNGS: decreased breath sounds at the bases HEART: Regular rate and rhythm, S1, S2 without murmur ABDOMEN: Soft,NT ND +BS EXTREMITIES: + RLE edema. Bandaged RLE c/d/i SKIN: Warm, dry LABS Laboratory Last Values WBC 6.4 K/mm3 (4.0-10.0) 06/13/20 06:23 RBC 3.12 M/mm3 (3.60-5.2) L 06/13/20 06:23 Hgb 9.0 GM/dL (10.7-15.3) L 06/13/20 06:23 Hct 26.8 % (32.4-45.2) L 06/13/20 06:23 MCV 85.9 fl (80-96) 06/13/20 06:23 MCH 28.9 pg (25.7-33.7) 06/13/20 06:23 MCHC 33.7 g/dl (32.0-36.0) 06/13/20 06:23 RDW 16.8 % (11.6-15.6) H 06/13/20 06:23 Plt Count 245 K/MM3 (134-434) 06/13/20 06:23 MPV 7.8 fl (7.5-11.1) 06/13/20 06:23 Absolute Neuts (auto) 4.8 K/mm3 (1.5-8.0) 06/13/20 06:23 Neutrophils % 75.6 % (42.8-82.8) 06/13/20 06:23 Neutrophils % (Manual) 78.0 % (42.8-82.8) 06/12/20 06:35 Band Neutrophils % 0.0 % 06/12/20 06:35 Lymphocytes % 13.4 % (8-40) 06/13/20 06:23 Lymphocytes % (Manual) 16.0 % (8-40) 06/12/20 06:35 Monocytes % 7.8 % (3.8-10.2) 06/13/20 06:23 Monocytes % (Manual) 5 % (3.8-10.2) 06/12/20 06:35 Eosinophils % 2.0 % (0-4.5) 06/13/20 06:23 Eosinophils % (Manual) 1.0 % (0-4.5) 06/12/20 06:35 Basophils % 1.2 % (0-2.0) 06/13/20 06:23 Basophils % (Manual) 0.0 % (0-2.0) 06/12/20 06:35 Myelocytes % (Man) 0 % (0-2) 06/12/20 06:35 Promyelocytes % (Man) 0 % (0-2) 06/12/20 06:35 Blast Cells % (Manual) 0 % (0-0) 06/12/20 06:35 Nucleated RBC % 0 % (0-0) 06/13/20 06:23 Metamyelocytes 0 % (0-2) 06/12/20 06:35 Hypochromia 0 06/12/20 06:35 Platelet Estimate Normal 06/12/20 06:35 Polychromasia 1+ 06/12/20 06:35 Poikilocytosis 0 06/12/20 06:35 Anisocytosis 1+ 06/12/20 06:35 Microcytosis 1+ 06/12/20 06:35 Macrocytosis 0 06/12/20 06:35 PT with INR 45.70 SEC (9.7-13.0) H 06/13/20 06:23 INR 3.82 (0.83-1.09) H 06/13/20 06:23 PTT (Actin FS) 24.3 SECONDS (25.2-36.5) L 06/13/20 06:23 Fibrinogen > 500.0 mg/dL (238-498) H 06/11/20 01:03 Sodium 140 mmol/L (136-145) 06/13/20 06:23 Potassium 3.4 mmol/L (3.5-5.1) L 06/13/20 06:23 Chloride 104 mmol/L (98-107) 06/13/20 06:23 Carbon Dioxide 26 mmol/L (21-32) 06/13/20 06:23 Anion Gap 10 MMOL/L (8-16) 06/13/20 06:23 BUN 34.0 mg/dL (7-18) H 06/13/20 06:23 Creatinine 1.4 mg/dL (0.55-1.3) H 06/13/20 06:23 Est GFR (CKD-EPI)AfAm 38.51 06/13/20 06:23 Est GFR (CKD-EPI)NonAf 33.23 06/13/20 06:23 POC Glucometer 72 UNITS (80-120) 06/08/20 06:26 Random Glucose 78 mg/dL (74-106) 06/13/20 06:23 Calcium 8.4 mg/dL (8.5-10.1) L 06/13/20 06:23 Phosphorus 2.7 mg/dL (2.5-4.9) 06/13/20 06:23 Magnesium 1.7 mg/dL (1.8-2.4) L 06/13/20 06:23 Total Bilirubin 1.3 mg/dL (0.2-1) H 06/13/20 06:23 AST 16 U/L (15-37) 06/13/20 06:23 ALT < 6 U/L (13-61) L 06/13/20 06:23 Alkaline Phosphatase 124 U/L (45-117) H 06/13/20 06:23 Total Protein 5.2 g/dl (6.4-8.2) L 06/13/20 06:23 Albumin 2.2 g/dl (3.4-5.0) L 06/13/20 06:23 Urine Color Yellow 06/08/20 17:00 Urine Appearance Cloudy 06/08/20 17:00 Urine pH 5.0 (5.0-8.0) 06/08/20 17:00 Ur Specific [place] 1.029 (1.010-1.035) 06/08/20 17:00 Urine Protein 1+ (NEGATIVE) H 06/08/20 17:00 Urine Glucose (UA) Negative (NEGATIVE) 06/08/20 17:00 Urine Ketones Negative (NEGATIVE) 06/08/20 17:00 Urine Blood 3+ (NEGATIVE) H 06/08/20 17:00 Urine Nitrite Negative (NEGATIVE) 06/08/20 17:00 Urine Bilirubin Negative (NEGATIVE) 06/08/20 17:00 Urine Urobilinogen 0.2 mg/dL (0.2-1.0) 06/08/20 17:00 Ur Leukocyte Esterase 1+ (NEGATIVE) H 06/08/20 17:00 Urine WBC (Auto) 154 /uL (0-25.8) 06/08/20 17:00 Urine RBC (Auto) 1451 /uL (0-23.9) 06/08/20 17:00 Urine Casts (Auto) 8 /uL (0-3.1) 06/08/20 17:00 U Pathogenic Cast Auto Negative /lpf (NEGATIVE) 06/08/20 17:00 U Epithel Cells (Auto) >36 /uL (0-25.1) 06/08/20 17:00 Urine Bacteria (Auto) 29 /uL (0-1359) 06/08/20 17:00 COVID-19 ([facility]) Not detected (Not Detected) 06/06/20 23:45 Blood Type B NEGATIVE 06/10/20 12:25 Antibody Screen Negative 06/10/20 12:25 Crossmatch See Detail 06/10/20 12:25 HOSPITAL COURSE: Date of Admission:06/06/20 Date of Discharge: 06/13/20 89 y/o F PMHx dementia, HTN, CAD, DVT, CKD, Gout, GERD, CHF with PPM, PVD, admitted to the ICU s/p femoropopliteal bypass (on 06/06). Vascular surgery, Hematology and nephrology consulted. Labwork noted above, Imaging as per chart. Patients course was complicated by acute blood loss anemia requiring 3u pRBC. Lower extremity pulses remained dopplerable and her edema improved. Patient developed GENA in the setting of post-op Hypotension for which a renal US was done (noted in chart); her GENA improved with IV Hydration. Patient went into CHF exacerbation for which she was treated with IV diuresis. On POD#4, patient found to have RLE DVT of questionable chronicity. Her H&H remained stable and volume status improved. Patients INR remained supratherapuetic and her Coumadin dose was held. patient to be discharged to SNF with strict instruction for follow up and medication compliance. Patient will need to follow up with PCP on Saturday 06/16 for INR check to resume Warfarin use. Minutes to complete discharge: 36 Discharge Summary Problems reviewed: Yes Reason For Visit: ISCHEMIA OF FOOT Current Active Problems CAD (coronary artery disease) (Acute) CHF (congestive heart failure) (Acute) CKD (chronic kidney disease) (Acute) Ischemic foot (Acute) Peripheral artery disease (Acute) Condition: Stable - Instructions Diet, Activity, Other Instructions: You presented to the hospital with Right Lower extremity Pain and had to have surgery (femoral popliteal bypass with PTFE graft). Your foot pain improved and you are not stable for discharge to your rehab facility. Medication Changes: 1. Please hold your warfarin dose until you have your INR Checked on Saturday 06/16. You should only resume it once your INR is therapeutic (2-3); Please have your INR checked on tuesday with your PCP 2. Please use bisacodyl as needed for constipation Follow up with the following physicians: 1. PCP in one week, please call to schedule follow up, your work up is not complete until you do so. 2. Vascular surgery in one week to further evaluate your foot and check surgical site 3. Nephrology in one week to further evaluate your kidney function 4. Hematology in one week to further evaluate your clotting risks Follow up labs: 1. INR On Saturday 06/16 Please continue to monitor your diet as you need to intake less sugar and salt. Please return to the ER if you have any signs or symptoms of chest pain, shortness of breath, uncontrollable fever, chills, nausea, vomiting, numbness, tingling, or weakness in any part of your body, changes in vision, or slurred speech. Please return to the ER if symptoms persist, worsen, or new symptoms arise. Referrals: Yany Smith MD [Staff Physician] - Arlin Em MD [Staff Physician] - Sugar Miles MD [Staff Physician] - Disposition: INTERMEDIATE FACILITY - Home Medications Comprehensive Discharge Medication List: Ambulatory Orders Acetaminophen [Tylenol .Extra-Strength -] 500 mg PO Q8H PRN 06/06/20 Carvedilol 25 mg PO BID 06/06/20 Febuxostat [Uloric] 40 mg PO DAILY 06/06/20 Furosemide [Lasix -] 40 mg PO DAILY 06/06/20 Isosorbide Mononitrate [Isosorbide Mononitrate ER] 30 mg PO DAILY 06/06/20 Mirtazapine 7.5 mg PO HS 06/06/20 Polyethylene Glycol 3350 17 gm PO DAILY 06/06/20 Rosuvastatin [Crestor -] 10 mg PO HS 06/06/20 Sennosides/Docusate Sodium [Senna Plus 8.6-50 mg Tablet] 8.6 mg PO DAILY PRN 06/06/20 Bisacodyl [Bisacodyl -] 5 mg PO DAILY PRN tablet. 06/13/20 This patient is new to me today: Yes Date on this admission: 06/13/20 Emergency Visit: Yes ED Registration Date: 06/06/20 Care time: The patient presented to the Emergency Department on the above date and was hospitalized for further evaluation of their emergent condition. Critical Care patient: No - Discharge Referral Referred to [facility] Med P.C.: No ATTENDING PHYSICIAN STATEMENT I saw and evaluated the patient. I reviewed the resident's note and discussed the case with the resident. I agree with the resident's findings and plan as documented. SUBJECTIVE: OBJECTIVE: ASSESSMENT AND PLAN:
--- NOTE | 2020-06-13 12:48 | PN ---
Progress Note, Physician History of Present Illness: Pt seen and examined at bedside. She is awake and alert. She denies shortness of breath. - Current Medication List Current Medications: Active Medications Acetaminophen (Tylenol -) 1,000 mg PO Q8H PRN PRN Reason: PAIN LEVEL 1-5 Last Admin: 06/13/20 03:58 Dose: 1,000 mg Documented by: Carvedilol (Coreg -) 25 mg PO BID [facility] Last Admin: 06/13/20 09:32 Dose: 25 mg Documented by: Febuxostat (Uloric -) 40 mg PO DAILY [facility] Last Admin: 06/13/20 09:33 Dose: 40 mg Documented by: Furosemide (Lasix -) 40 mg PO DAILY [facility] Last Admin: 06/13/20 09:32 Dose: 40 mg Documented by: Cefazolin Sodium 1 gm/ (Dextrose) 50 mls @ 100 mls/hr IVPB Q8H-IV [facility] Last Admin: 06/13/20 09:33 Dose: 100 mls/hr Documented by: Magnesium Sulfate/Dextrose (Magnesium 1gm/D5w -) 1 gm in 100 mls @ 100 mls/hr IVPB ONCE ONE Stop: 06/13/20 12:59 Isosorbide Mononitrate (Imdur -) 30 mg PO DAILY [facility] Last Admin: 06/13/20 09:32 Dose: 30 mg Documented by: Mirtazapine (Remeron -) 7.5 mg PO [facility] Last Admin: 06/12/20 21:59 Dose: 7.5 mg Documented by: Polyethylene Glycol (Miralax (For Daily Use) -) 17 gm PO DAILY [facility] Last Admin: 06/13/20 09:32 Dose: 17 gm Documented by: Rosuvastatin Calcium (Crestor -) 10 mg PO HS [facility] Last Admin: 06/12/20 21:58 Dose: 10 mg Documented by: Senna/Docusate Sodium (Pericolace -) 2 tablet PO DAILY PRN PRN Reason: CONSTIPATION - Objective Vital Signs: Vital Signs Temperature 98.0 F 06/13/20 08:22 Pulse Rate 50 L 06/13/20 08:22 Respiratory Rate 20 06/13/20 09:00 Blood Pressure 154/69 06/13/20 08:22 O2 Sat by Pulse Oximetry (%) 96 06/13/20 09:00 Constitutional: Yes: Calm Eyes: Yes: Conjunctiva Clear HENT: Yes: Atraumatic Neck: Yes: Supple Cardiovascular: Yes: S1, S2 Respiratory: Yes: CTA Bilaterally Gastrointestinal: Yes: Normal Bowel Sounds, Soft Genitourinary: Yes: WNL Musculoskeletal: Yes: WNL Edema: Yes Neurological: Yes: Oriented Psychiatric: Yes: Oriented Labs: CBC, BMP 06/13/20 06:23 06/13/20 06:23 INR, PTT INR 3.82 (0.83-1.09) H 06/13/20 06:23 Fibrinogen > 500.0 mg/dL (238-498) H 06/11/20 01:03 Problem List - Problems (1) CKD (chronic kidney disease) Code(s): N18.9 - CHRONIC KIDNEY DISEASE, UNSPECIFIED (2) CAD (coronary artery disease) Code(s): I25.10 - ATHSCL HEART DISEASE OF [place] CORONARY ARTERY W/O ANG PCTRS (3) Peripheral artery disease Code(s): I73.9 - PERIPHERAL VASCULAR DISEASE, UNSPECIFIED (4) CHF (congestive heart failure) Code(s): I50.9 - HEART FAILURE, UNSPECIFIED (5) Ischemic foot Code(s): I99.8 - OTHER DISORDER OF CIRCULATORY SYSTEM Assessment/Plan Current Medications Generic Name Dose Route Start Last Admin Trade Name Freq PRN Reason Stop Dose Admin Acetaminophen 1,000 mg 06/07/20 17:47 06/13/20 03:58 Tylenol - PO 1,000 mg Q8H PRN Administration PAIN LEVEL 1-5 Carvedilol 25 mg 06/07/20 22:00 06/13/20 09:32 Coreg - PO 25 mg BID [facility] Administration Febuxostat 40 mg 06/08/20 10:00 06/13/20 09:33 Uloric - PO 40 mg DAILY [facility] Administration Furosemide 40 mg 06/08/20 10:00 06/13/20 09:32 Lasix - PO 40 mg DAILY [facility] Administration Cefazolin Sodium 1 gm/ 50 mls @ 100 mls/hr 06/10/20 10:00 06/13/20 09:33 Dextrose IVPB 100 mls/hr Q8H-IV [facility] Administration Magnesium Sulfate/Dextrose 1 gm in 100 mls @ 100 mls/hr 06/13/20 12:00 Magnesium 1gm/D5w - IVPB 06/13/20 12:59 ONCE ONE Isosorbide Mononitrate 30 mg 06/08/20 10:00 06/13/20 09:32 Imdur - PO 30 mg DAILY [facility] Administration Mirtazapine 7.5 mg 06/07/20 22:00 06/12/20 21:59 Remeron - PO 7.5 mg HS [facility] Administration Polyethylene Glycol 17 gm 06/08/20 10:00 06/13/20 09:32 Miralax (For Daily Use) - PO 17 gm DAILY [facility] Administration Rosuvastatin Calcium 10 mg 06/07/20 22:00 06/12/20 21:58 Crestor - PO 10 mg HS [facility] Administration Senna/Docusate Sodium 2 tablet 06/07/20 17:47 Pericolace - PO DAILY PRN CONSTIPATION Impression 1. CKD 2. PVD 3. chf 4. hld 5. cad 6. dvt 7. s/p fem pop bypass 8. atrophic right kidney Plan - renal function is improving - cont home dose of lasix - replace potassium - will need outpt follow up - vascular follow up - avoid nsaids - monitor edema
--- NOTE | 2020-06-13 16:11 | PN ---
Teaching Attending Note Name of Resident: Jyoti Cullen ATTENDING PHYSICIAN STATEMENT I saw and evaluated the patient. I reviewed the resident's note and discussed the case with the resident. I agree with the resident's findings and plan as documented. SUBJECTIVE: No complaints. No events overnight. OBJECTIVE: Vital Signs Temperature 98.0 F 06/13/20 08:22 Pulse Rate 50 L 06/13/20 08:22 Respiratory Rate 20 06/13/20 09:00 Blood Pressure 154/69 06/13/20 08:22 O2 Sat by Pulse Oximetry (%) 96 06/13/20 09:00 GENERAL: NAD, awake, alert HEENT: Hirsuitism noted, EOMI, CELESTE, MMM LUNGS: Poor inspiratory effort but otherwise CTA b/l. HEART: Regular rate and rhythm, S1, S2 without murmur ABDOMEN: Soft,NT ND +BS EXTREMITIES: + RLE edema. Bandaged RLE c/d/i SKIN: Warm, dry CBC, BMP 06/13/20 06:23 06/13/20 06:23 Assessment and Plan: POD 6 R femoral-popliteal bypass Acute blood loss anemia Supratherapeutic INR Lower extremity DVT on AC Kidney injury, unknown if chronic Dementia History of CAD CHF with AICD History of HTN History of GERD --Stable post-operatively and will require SNF placement for continued rehabilitation --Szymanski discontinued; void trial --3U PRBC total transfused (2 operatively; 1 post-op); H/H stable for multiple days --Supratherapeutic INR continue to hold Coumadin and repeat INR on Tuesday --Without any acute bleeding can be titrated on outpatient basis --No Vit K indicated today --Will need hem/onc follow-up for hypercoaguable workup --Daily wound care --Continue rest of home medications Dispo: SNF discharge DO Nicole Maradiaga IM
== END 2020-06-13 14:22 | DRG 271 ==
LOC: JER 16:59 → JERBED 18:15 → JICU 23:30 → J4W 06-12 01:16
PROVIDERS: ADMIT Surgery Vascular Surgery; ATTEND Internal Medicine
PROC: 041K4JL Bypass Right Femoral Artery to Popliteal Artery with Synthetic Substitute, Percutaneous Endoscopic Approach (ICD-10-PCS; 2020-06-06)
PROC: 04CK3ZZ Extirpation of Matter from Right Femoral Artery, Percutaneous Approach (ICD-10-PCS; principal; 2020-06-06 17:59)
PROC: 30233N1 Transfusion of Nonautologous Red Blood Cells into Peripheral Vein, Percutaneous Approach (ICD-10-PCS; 2020-06-08)
DX: I73.89 Other specified peripheral vascular diseases (principal); F03.91 Unspecified dementia, unspecified severity, with behavioral disturbance; I13.0 Hypertensive heart and chronic kidney disease with heart failure and stage 1 through stage 4 chronic kidney disease, or unspecified chronic kidney disease; N17.9 Acute kidney failure, unspecified; L97.818 Non-pressure chronic ulcer of other part of right lower leg with other specified severity; D62 Acute posthemorrhagic anemia; I82.411 Acute embolism and thrombosis of right femoral vein; I82.431 Acute embolism and thrombosis of right popliteal vein; I25.10 Atherosclerotic heart disease of native coronary artery without angina pectoris; M62.261 Nontraumatic ischemic infarction of muscle, right lower leg; M10.9 Gout, unspecified; F32.9 Major depressive disorder, single episode, unspecified; K21.9 Gastro-esophageal reflux disease without esophagitis; I50.9 Heart failure, unspecified; N18.9 Chronic kidney disease, unspecified; E78.5 Hyperlipidemia, unspecified; K59.00 Constipation, unspecified; I95.81 Postprocedural hypotension; N99.0 Postprocedural (acute) (chronic) kidney failure; Y83.8 Other surgical procedures as the cause of abnormal reaction of the patient, or of later complication, without mention of misadventure at the time of the procedure; Z79.01 Long term (current) use of anticoagulants; Z95.0 Presence of cardiac pacemaker
CPT/HCPCS: 36415; 36430; 36511; 71045-TC-FY; 76000-TC-FY; 76775-TC; 80048; 80053; 81003; 82962; 83735; 84100; 85025; 85027; 85384; 85610; 85730; 86850; 86900; 86901; 86922; 93971-TC; 94760; 97116-GP; 97162-GP; 99285-25; J1644; P9016; P9058; U0003